=== PATIENT | male | born 1940 | race African-American/Black ===

== ENCOUNTER 2016-11-28 23:59 | Inpatient (IN) | payer BC ==
--- NOTE | ~2016-11-28 | DS ---
Discharge Summary [facility] [address] [place]. [address] NAME: ANNY ROSAS JR : 44 STATUS : DIS IN PAT#: [id number] AGE: 76 ADM/REG DATE : 11/29/16 MR#: [id number] REPORT SERV DATE: 01/01/17 DICTATED BY: JOLENE KANG DATE: 12/31/16 REPORT STATUS : Draft TRANSCRIBED BY: MARY DATE: 12/31/16 Data Collection from hospitalization DISCHARGE DIAGNOSES: 1. End-stage renal disease. 2. ASCVD status post coronary artery bypass grafting. 3. Anemia. 4. Wor-ftsugrb-cwgegpqop diabetes mellitus. 5. Cellulitis of the left lower extremity. 6. Acute ira-GV-dfjleffyj myocardial infarction. 7. Hypertension. 8. History of prostate cancer. 9. History of remote myocardial infarction. 10.History of nephrolithiasis. 11.History of acute systolic heart failure. 12.Hyperlipidemia. CONSULTATIONS: Dr. Deshaun Goncalves, Dr. Joe Patterson, Dr. Prakash Castro, Dr. Alli Foster. PROCEDURES PERFORMED: 1. Cardiac catheterization, 12/04/2016. 2. Limited right iliofemoral angiogram, left heart catheterization, left ventriculogram, left and right coronary angiograms, saphenous vein angiogram, left internal mammary angiogram, 11/30/2016. 3. Urgent redo coronary artery bypass grafting x3 with reverse saphenous vein graft placed to the ramus intermedius, reverse saphenous vein graft placed to the second obtuse marginal, reverse saphenous vein graft placed to the posterior descending artery, preservation of the old FROY graft, placement of dual-lumen right subclavian vein temporary dialysis catheter, endoscopic vein harvest of the saphenous vein from the right and left lower leg. 4. Transesophageal echocardiography, 12/08/2016. 5. Re-exploration of chest with evacuation of clot, 12/09/2016. 6. Carotid blood flow study, 12/07/2016. 7. Vein mapping of the bilateral lower extremities, 12/07/2016. 8. CT scan of the chest with contrast, 12/07/2016. 9. CT scan of the brain without contrast, 12/13/2016. 10.Venous Doppler ultrasound of the left lower extremity, 12/14/2016. 11.MRI of the brain without contrast, 12/15/2016. DISCHARGE MEDICATIONS: Vitamin C 1000 mg twice a day, Halfprin 81 mg daily, Maxipime 2 g IV at 4 p.m., Plavix 75 mg daily, Zetia 10 mg at bedtime, NovoLog injection insulin as instructed, Bactroban 1 g topically twice a day, Nitrol ointment one-inch topically every eight hours, ProctoFoam apply as directed per rectum three times a day, Orazinc 220 mg daily, Apresoline 25 mg every eight hours, Levemir 10 units subcutaneously twice a day, vitamin D3 1000 units twice a day, ProAir HFA two puffs via inhaler as needed. CONDITION AT DISCHARGE: Stable. Discharge Summary [address] [place]. [address] NAME: ANNY ROSAS JR : 44 STATUS : DIS IN [facility]#: [id number] AGE: 76 ADM/REG DATE : 11/29/16 MR#: [id number] REPORT SERV DATE: 01/01/17 DICTATED BY: JOLENE KANG DATE: 12/31/16 REPORT STATUS : Draft TRANSCRIBED BY: MARY DATE: 12/31/16 DISPOSITION: The patient was discharged to [facility] on a cardiac/renal diet with activities as instructed. HOSPITAL COURSE: This is a 75-year-old man, who dialyzes on Mondays, Wednesdays, and Fridays via left upper extremity AV fistula. He recently had his right IJ PermCath removed. He presented to the emergency room with left substernal chest pain. His initial troponin was 1.45 and subsequent troponin dominga to 6.87. He was placed on heparin infusion and topical nitrates with resolution of his chest pain. He was admitted to the hospital at this time for further evaluation and treatment. Upon admission, heparin was started. Dialysis would be performed. He was seen in consultation by Dr. Alli Foster. The patient had a myocardial perfusion imaging study in September that demonstrated no ischemia. The patient was felt to have had an acute non-ST- elevation myocardial infarction. The patient was currently asymptomatic and hemodynamically stable. It was felt that he would need to undergo cardiac catheterization with possible percutaneous coronary intervention. On the , the patient complained of no chest pain. He did have some nausea and vomiting and hypotension during hemodialysis the day previously. He was taken to the cardiac lab systems analyst, where he underwent the above-mentioned procedure. He tolerated this well and there were no complications. On 12/01/2016, he had no dyspnea, chest pain, or palpitations. He had 1+ pitting edema bilaterally. Telemetry revealed sinus rhythm with 6 beats MMVT. Aspirin dose was decreased. He was going to undergo percutaneous coronary intervention in a couple of days. 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 The patient does have acute systolic congestive heart failure. Valsartan was given. Hemodialysis therapy was performed. The next day, he was in a sinus rhythm. He remained stable over the next couple of days. He had trace bilateral pedal edema. Supportive care continued. On 12/04/2016, he was in no acute distress. His hemodialysis treatment continued. He was taken back to the cardiac lab systems analyst by Dr. Alli Foster, where he underwent the above-mentioned procedure. He tolerated this well and there were no complications. On 12/05/2016, he had 1+ edema. He was going to be transferred to the floor. Blood pressure was under better control on JOSEPHINE inhibitor. The next day, he was seen by Deshaun Goncalves, regarding three-vessel coronary artery disease with recent twx-IB-jyvmgmgeu myocardial infarction. On 12/04/2016, an attempt had been made for percutaneous coronary intervention to the first obtuse marginal of the circumflex, which was unsuccessful. He had been asked to see the patient regarding consideration for redo coronary artery bypass grafting. Coronary arteriogram was reviewed. Echocardiogram showed no valvulopathy and was felt that he may have to undergo vein mapping of the bilateral lower extremities in advance of surgery. Plans were being made to proceed with surgical intervention. On the , a carotid blood flow study was performed as well as vein mapping of the bilateral lower extremities. A CT scan of the chest with contrast was also performed. He remained in a sinus rhythm. On the , he was taken to the operating room by Dr. Yohan Johnson, where he underwent the above-mentioned procedure. He tolerated this well and there were no complications. On postop day one, his incisions were clean, dry, and intact. Levophed was being weaned. He did complain of some chest discomfort. Later in the day, he developed hypotension and decreased heart rate and nausea. It was felt that he would need to undergo reexploration in the operating room. He was taken back to the operating room, where he Discharge Summary [address] [place]. [address] NAME: ANNY ROSAS JR : 44 STATUS : DIS IN PAT#: [id number] AGE: 76 ADM/REG DATE : 11/29/16 MR#: [id number] REPORT SERV DATE: 01/01/17 DICTATED BY: JOLENE KANG DATE: 12/31/16 REPORT STATUS : Draft TRANSCRIBED BY: MARY DATE: 12/31/16 underwent the above-mentioned procedure by Dr. Johnson. He tolerated this well and there were no complications. He did have some chest soreness. He had been extubated. CRRT was being provided. On the , his wounds were clean, dry, and intact. His blood pressure was much improved. He had trace edema. Metoprolol was held. He did complain of some abdominal pain as well as some bilateral lower extremity pain. Amiodarone was held. Metoprolol was discontinued. He remained on CRRT. He required high-dose Levophed/vasopressin that evening. We would increase ultrafiltration as tolerated. On 12/13/2016, he complained of feeling weak. He said he felt weak on the left side. His incisions looked okay. He was off pressors. The patient developed some lethargy and left- sided neglect. He had some left lower extremity weakness according to the nurse. A central line was going to be placed. A CT scan of the brain without contrast was performed. On 12/14/2016, he was off Levophed. He complained of left lower extremity pain. Ultrafiltration was increased. The left-sided neglect and weakness had improved. Temporary pacemaker was decreased. Clopidogrel was being given. The patient was seen by Dr. Joe Patterson regarding the left-sided weakness. He had had a venous Doppler ultrasound of the left lower extremity that was negative for DVT. CT scan of the brain showed right basal ganglia stroke, which appeared to be chronic. Echocardiogram demonstrated no apical thrombus. His carotid Doppler study had shown no significant carotid stenosis. He had a decreased nasolabial fold on left. MRI of the brain was requested when the pacing wire was removed. Physical and occupational therapy as well as speech therapy would be initiated. Aspirin was continued. Lipitor was increased. Plavix would be given if it was okay with the surgical team. He was evaluated by Physical Therapy. The next day, he was up sitting in a chair. He said he felt a little better. MRI of the brain without contrast was performed. Pacing wires were removed. He was lethargic. He had no new complaints. He remained on CRRT. CRRT was going to be discontinued. Speech-Language pathology performed a bedside swallow study. There were no overt signs or symptoms of aspiration. Aspiration precautions would be in place. Physical therapy had evaluated the patient. MRI of the brain without contrast was performed. Acute areas of ischemia were present in the right calcarine cortex and scattered in the bilateral XAVI territories without mass effect or hemorrhage. There was sphenoid sinus disease. 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 He was seen by Dr. Prakash Castro regarding cellulitis. Over the past day or two, he had developed a cellulitis like picture of the left lower leg with marked erythema and tenderness. He had a temperature that morning of 99.5. His white blood cell count was mildly elevated, but was now down to 9.9. Liver function tests were normal. The patient had undergone endoscopic vein harvesting in this leg. He had a low-grade fever, also CRRT. Procalcitonin level was elevated. Vancomycin was going to began. He was evaluated by Occupational and Physical Therapy. On the , his lungs were fairly clear on chest x-ray. His cardiovascular status was stable. He still complained of weakness in the left leg. He had no chest pain. DAPT continued. Aspirin, Plavix, and statin agent were continued. White count was 10.6. Hemodialysis therapy was performed. The patient was placed on level 2 sliding scale insulin. Urine output increased. He was afebrile. Vancomycin was continued. The left leg weakness began to improve. Bradycardia resolved. Statin agent was discontinued. On the , he complained of left lower extremity weakness and ankle pain. On the , his white count was 12. Cefepime was added. Vancomycin was continued. The JOHN hose on the left leg were going to be removed. It was felt that the patient would benefit from rehabilitation at discharge. He underwent diabetes education. He said the Discharge Summary [address] [place] [address] NAME: ANNY ROSAS JR : 44 STATUS : DIS IN PAT#: [id number] AGE: 76 ADM/REG DATE : 11/29/16 MR#: [id number] REPORT SERV DATE: 01/01/17 DICTATED BY: JOLENE KANG DATE: 12/31/16 REPORT STATUS : Draft TRANSCRIBED BY: MARY DATE: 12/31/16 left leg continued to hurt. The warmth in the left lower leg decreased. Diabetes control improved. His incisions looked okay. He did have a good bowel movement. Lactulose was stopped as well as Reglan. On the , he was feeling better. Left lower extremity weakness improved, but still remained tender. He was afebrile. Blood pressure was acceptable. He was going to receive one more dose of vancomycin and then this would be discontinued. He would receive a dose of cefepime following hemodialysis on the . Discharge planning was performed. On 12/22/2016, he had no new issues. He had no complaints. He was alert and cooperative. Dialysis therapy was performed. Discharge instructions were given. Due to his improved and stable condition, he was discharged to [facility] on a cardiac/renal diet with activities as instructed. Information collected by: Kylah Rodriguez I submit the above information as my discharge summary. SABINO/MARY Jolene Kang M.D. / [id number] CC: Taryn Luis M.D.
--- NOTE | ~2016-11-28 | CN ---
Consultation Report [facility] [address] [place]. [address] NAME: ANNY ROSAS JR : 44 STATUS : ADM IN PAT#: [id number] AGE: 76 ADM/REG DATE : 11/29/16 MR#: [id number] REPORT SERV DATE: 12/18/16 DICTATED BY: AMADO CASTRO DATE: 12/15/16 REPORT STATUS : Draft TRANSCRIBED BY: MODL DATE: 12/15/16 INFECTIOUS DISEASE CONSULTATION DATE OF CONSULTATION: 12/15/2016 REASON FOR CONSULTATION: Cellulitis. HISTORY OF PRESENT ILLNESS: This is a 75-year-old man with a past medical history notable for end-stage renal disease, on chronic dialysis, along with history of coronary artery disease and previous bypass surgery. He was admitted to the hospital on 11/29 with chest pain and ruled in for myocardial infarction and underwent cardiac cath, which showed that four of his six bypass grafts from his 2011 surgery were occluded. The patient was taken to the operating room by Dr. Johnson on 12/08 and underwent redo coronary artery bypass grafting x3 utilizing saphenous vein grafts harvested from both legs. There was preservation of the old FROY graft. In addition, a right subclavian dialysis catheter was placed. Postoperatively, the patient was extubated fairly early, but did require pressor support for a while and was also placed on CRRT. The CRRT was actually stopped today. He has been off the pressors for a while. He also developed some left-sided hemiparesis, for which he has been evaluated by Neurology and now that his pacer wires have been removed, he is going to undergo MRI scanning of the brain. It was noticed over the last day or two that he has developed a cellulitis-like picture of his left lower leg with warmth, erythema, and tenderness. He has been afebrile, but on CRRT, although his first temperature off the [facility] COORDINATOR this morning is 99.5. His white blood cell count has been mildly elevated, but is down to 9.9 this morning. PAST MEDICAL HISTORY: In addition to the above is notable for hyperlipidemia; hypertension; prostate cancer, for which he was treated with radiation therapy; nephrolithiasis; partial thyroidectomy; diabetes; and a history of DVT. ALLERGIES: NONE. PRESENT MEDICATIONS: Include vitamin C, aspirin, Plavix, Zetia, Pepcid, insulin sliding scale, Bactroban intranasally, and Orazinc. SOCIAL HISTORY: He used to work in a foundry. Nonsmoker. . FAMILY HISTORY: Notable for hypertension and diabetes. REVIEW OF SYSTEMS: Otherwise, negative. No nausea, vomiting, diarrhea, chest pain, or shortness of breath. PHYSICAL EXAMINATION: GENERAL: This is a pleasant man, who is slightly sleepy, but he answers questions appropriately and is in no acute distress. HEAD AND NECK: Unremarkable. Consultation Report [address] [place]. [address] NAME: ANNY ROSAS JR : 44 STATUS : ADM IN [facility]#: [id number] AGE: 76 ADM/REG DATE : 11/29/16 MR#: [id number] REPORT SERV DATE: 12/18/16 DICTATED BY: AMADO CASTRO DATE: 12/15/16 REPORT STATUS : Draft TRANSCRIBED BY: MARY DATE: 12/15/16 LUNGS: Clear to auscultation anteriorly. CARDIAC: Regular rate and rhythm without murmur, gallop, or rub. Sternal wound appears to be healing nicely. ABDOMEN: Nondistended, soft, and nontender. Decreased bowel sounds. EXTREMITIES: The left endoscopic saphenous vein harvest site wound shows no signs of infection, but extending below this down the medial and anterior calf is an area of diffuse erythema, warmth, and tenderness. No areas of fluctuance. LINES: The patient has a left subclavian central line placed on 12/13 and a right subclavian dialysis catheter placed at the time of surgery. LABORATORY STUDIES: White blood cell count as mentioned, hemoglobin 7.5, platelets 110. Albumin 3.9, AST 160, other liver function tests are normal. On 12/10, procalcitonin was 1.18 and on 12/13, procalcitonin was 5.42. Left lower extremity ultrasound shows no signs of a DVT. A CT scan of the brain without contrast showed no acute findings. IMPRESSION: Cellulitis of left lower leg, seven days out from redo CABG, for which he underwent endoscopic vein harvesting in the leg. He does have a low-grade fever off the CRRT, and his procalcitonin is elevated. PLAN: We will begin vancomycin and follow with you. JOANA/MARY ado Castro M.D. / [id number] CC: Taryn Luis M.D. Leonard Hays III, M.D., [facility], [facility]
--- NOTE | ~2016-11-28 | OP ---
Record Of Operation [facility] [address] [place]. [address] NAME: ANNY ROSAS JR : 44 STATUS : ADM IN PAT#: [id number] AGE: 75 ADM/REG DATE : 11/29/16 MR#: [id number] REPORT SERV DATE: 12/15/16 DICTATED BY: TRAVON JOHNSON DATE: 12/08/16 REPORT STATUS : Draft TRANSCRIBED BY: MODL DATE: 12/08/16 DATE OF PROCEDURE: 12/08/2016 PREOPERATIVE DIAGNOSES: 1. Coronary artery disease, status post previous coronary artery bypass grafting. 2. His fhk-SP-ninqqwzyn myocardial infarction. 3. End-stage renal disease, on dialysis. 4. Insulin-dependent diabetes mellitus type 2. 5. Prostate carcinoma, status post radiation therapy. 6. History of deep venous thrombosis. 7. Acute systolic heart failure (ejection fraction of 40%). POSTOPERATIVE DIAGNOSES: 1. Coronary artery disease, status post previous coronary artery bypass grafting. 2. His dfe-SY-bwmgoqexq myocardial infarction. 3. End-stage renal disease, on dialysis. 4. Insulin-dependent diabetes mellitus type 2. 5. Prostate carcinoma, status post radiation therapy. 6. History of deep venous thrombosis. 7. Acute systolic heart failure (ejection fraction of 40%). PROCEDURE PERFORMED: 1. Urgent redo coronary bypass grafting x3, reverse saphenous vein graft placed to the ramus intermedius, reverse saphenous vein graft placed to the second obtuse marginal, reverse saphenous vein graft placed to the posterior descending artery. 2. Preservation of the old FROY graft. 3. Placement of dual lumen right subclavian vein temporary dialysis catheter. 4. Endoscopic vein harvest, saphenous vein from right and left lower leg. 5. Transesophageal echocardiography. SURGEON: Travon Johnson M.D. ASSISTANTS: Elvia Simon and Hugo Sun. ANESTHESIA: General with Dr. Quintanilla. TAPE CUTTER: Alli Foster M.D., [facility], [facility] INDICATIONS: This is a 75-year-old gentleman, who has been on dialysis for two years now. He presented to the emergency room recently with unstable anginal-type symptoms. Troponin at that time was elevated and he was admitted and diagnosed with dhz-UM-kkpnzmiev myocardial infarction. He was medically stabilized and underwent hemodialysis. He then underwent a cardiac catheterization, which demonstrated of the six grafts performed in 2010, that two were patent. The BROWN graft to the LAD and a vein graft going to the posterior descending artery. The other vein grafts placed at the time of his original operation were completely occluded. It looked like he had a new occluded OM2 graft that was culprit lesion. We were Record Of Operation [facility] [address] [place]. [address] NAME: ANNY ROSAS JR : 42 STATUS : ADM IN PAT#: [id number] AGE: 75 ADM/REG DATE : 11/29/16 MR#: [id number] REPORT SERV DATE: 12/15/16 DICTATED BY: TRAVON JOHNSON DATE: 12/08/16 REPORT STATUS : Draft TRANSCRIBED BY: MARY DATE: 12/08/16 asked to see the patient to evaluate for possible urgent redo coronary artery bypass grafting. We discussed this operation with the patient and his and after discussion of the operation, its indications, and risks, they wished to proceed. The patient's STS predicted mortality was 14.6%, morbidity of 52%, and this was discussed with the family. FINDINGS AT OPERATION: 1. Cross-clamp time of 69 minutes. Total pump time 133 minutes. 2. The ramus intermedius vessel was 1.75 mm mildly diseased. A 3 to 4 mm RSVG was anastomosed to it with good runoff. 3. The second obtuse marginal was 1.5 mm moderately diseased. A 3 to 4 mm RSVG was anastomosed to it with good runoff. 4. The posterior descending artery 1.5 mm moderately diseased. A 3 to 4 mm RSVG was anastomosed to it with good runoff. 5. The old FROY graft to the LAD was preserved and had Doppler signal at the end of the case. 6. The vein quality was good from the lower legs. It was a little bit smaller than usual and matched the targets very nicely. All grafts did have good Doppler signal at the end of the case. 7. WIL at the end of the operation demonstrated improved ventricular function. No significant valvular pathology. PATHOLOGIC SPECIMENS: None. DESCRIPTION OF PROCEDURE: The patient was brought to the operating suite. General anesthesia was induced; airway was secured with an endotracheal tube. Lines were secured by Anesthesia and a Hurley catheter was placed. The patient's chest, abdomen, groin, and legs were prepped with Hibiclens and ChloraPrep and draped with Ioban and sterile sheets. WIL probe was placed by Dr. Quintanilla and examination was carried out in my attendance. The saphenous vein was harvested from both lower legs below the knees. We had originally planned on harvesting the left greater saphenous vein from the entire left leg, however, this was not possible because of previous harvesting at the original operation in 2010. It was then discovered until the day of surgery. An incision for an endoscopic vein harvest was made just below the right knee and measured 1 to 2 cm. Secured through the subcutaneous tissue. The saphenous vein was dissected using endoscopic techniques. Once, the vein was completely dissected, side branches were ligated and divided with cautery. Once adequate length of vein had been dissected, a counter incision was made just above the ankle, and the vein was ligated, divided, and brought through the knee incision. In a similar fashion, the left saphenous vein from the left leg below the level of the knee was dissected through a 2 cm incision at the medial aspect of the left knee, and again endoscopic techniques were utilized on the left side also. This vein was brought up to the left knee incision. The vein quality from both legs was good. The leg wounds were made hemostatic, and closed in layers with absorbable suture, and skin closed subcuticular fashion. Next, the old sternal incision was anesthetized and opened with a knife, and was carried Record Of [address] [address] NAME: ANNY ROSAS : 42 STATUS : ADM IN [facility]#: [id number] AGE: 75 ADM/REG DATE : 11/29/16 MR#: [id number] REPORT SERV DATE: 12/15/16 DICTATED BY: TRAVON JOHNSON DATE: 12/08/16 REPORT STATUS : Draft TRANSCRIBED BY: MODL DATE: 12/08/16 through the subcutaneous tissue. The old sternal wires were divided and removed. We then opened the sternum carefully using the oscillating saw. Once, this was accomplished, the adhesions from the posterior table of sternum were taken down with cautery. We were able to place a retractor and we continued our dissection focusing on the right side of the heart and ascending aorta. Once, these structures were adequately cleared, heparin was administered by Anesthesia. The pericardium was tacked to the sides of the chest wall. The ascending aorta was more closely dissected, and the old vein grafts were identified, and these were preserved. With enough of the ascending aorta exposed, pursestring suture was placed in the ascending aorta for cannulation. We then placed a pursestring suture in the right atrial appendage, and the right lateral free wall of the atrium. Cannulation was carried out in routine manner. A retrograde cardioplegia cannula was later placed in the coronary sinus and secured. When all was in readiness, the patient was placed on cardiopulmonary bypass. We continued our dissection of the adhesions freeing the heart up circumferentially. The old vein graft distal sites were noted. The FROY graft was dissected last. It was freed up from adhesions to the lung and chest wall. There was good Doppler signal through the FROY graft. When we had enough slack in the BROWN graft, the heart support was placed. The distal targets were then marked out on the heart as described in the findings. Then, the aorta was cross-clamped. Initial dose of cardioplegia solution was given in a combination of antegrade and retrograde fashion, then in a retrograde manner, following proximal anastomoses. Following the first dose cardioplegia, the heart was positioned for the PDA graft. Arteriotomy was made, the vein graft was trimmed and anastomosed to it with 7-0 Prolene. The vein graft was measured to the right side of the ascending aorta where it was divided. We then positioned off to the second obtuse marginal graft. Another arteriotomy was made. The vein graft was trimmed and anastomosed to it with 7-0 Prolene. This vein graft was measured back to the left side of the ascending aorta where it was divided. Next, the proximal ends of these two vein grafts were anastomosed to 4.5 mm punch aortotomy with a 6-0 Prolene. Another dose of cardioplegia was given and we positioned the heart for the ramus intermedius graft. Warming was begun. Arteriotomy was made and the vein graft was trimmed and anastomosed to it with 7-0 Prolene. This vein graft was measured back to the left-side of the ascending aorta where it was divided and anastomosed to 4.5 mm punch aortotomy with 6 0 Prolene. The patient was placed in Trendelenburg and final dose of warm blood cardioplegia was given in a retrograde fashion. Ventricular and atrial pacing wires were placed. Following the last dose cardioplegia and deairing of the aorta, the aortic cross clamp was removed. A bulldog clamp was placed earlier on the FROY pedicle was removed also. Doppler demonstrated good flow through all the grafts. Proximal and distal anastomoses were made hemostatic. Record Of Operation [facility] [address] [place]. [address] NAME: ANNY ROSAS JR : 44 STATUS : ADM IN PAT#: [id number] AGE: 75 ADM/REG DATE : 11/29/16 MR#: [id number] REPORT SERV DATE: 12/15/16 DICTATED BY: TRAVON JOHNSON DATE: 12/08/16 REPORT STATUS : Draft TRANSCRIBED BY: MARY DATE: 12/08/16 The patient resumed a sinus rhythm spontaneously, and when the heart demonstrated good contractility, it was allowed to fill and eject. Ventilation was begun. When deairing was completed, the patient was taken out of Trendelenburg, and the ascending aortic vent was removed and these pursestring sutures were tied and reinforced. The patient was weaned from cardiopulmonary bypass with inotropic support. The venous cannulas were removed and these pursestring sutures were tied. WIL examination demonstrated good ventricular function. There was no significant valvular pathology. Protamine was administered by Anesthesia and following a period of hemodynamic stability, the aortic cannula was removed and these pursestring sutures were tied and reinforced. The patient continued to do well and chest was irrigated copiously with saline. Meticulous hemostasis was obtained. Hemasorb was placed along the cut edge of the sternum. Once hemostasis was assured, the pericardium was draped over the anterior surface of the heart. Doppler demonstrated good flow through the grafts following protamine administration. Then, chest tubes were placed and sternum was reapproximated with eight sternal wires. The clavipectoral fascia and linea alba closed with #1 Stratafix. Skin was closed in a subcuticular fashion. After hemostasis was achieved and the sternum and skin incisions closed, a right subclavian vein dual-lumen temporary dialysis catheter was placed for hemodialysis postoperatively. Briefly, needle was placed in the right subclavian vein and a guidewire placed through this needle. Then, using modified Seldinger technique, a 14.5-Hungarian dual-lumen temporary venous hemodialysis catheter was inserted into the right subclavian vein. Blood return was noted from both limbs. It was flushed with heparinized saline and secured to the skin, and sterile dressing applied. The patient was mildly coagulopathic at the end of the case and warning tag indicated, the patient needed platelets and fresh frozen plasma and this was administered. DISPOSITION: The patient was kept in the operating room for a shortly extended period of time to avoid chest tube output for mediastinal bleeding. The patient tolerated the procedure well without any complications. Sponge and needle counts were correct. AIDA/MARY Travon Johnson M.D. / [id number] / [id number] Record Of [address] [address] NAME: ANNY ROSAS : 42 STATUS : ADM IN PAT#: [id number] AGE: 75 ADM/REG DATE : 11/29/16 MR#: [id number] REPORT SERV DATE: 12/15/16 DICTATED BY: TRAVON JOHNSON DATE: 12/08/16 REPORT STATUS : Draft TRANSCRIBED BY: MARY DATE: 12/08/16 CC: Taryn Luis M.D. Leonard Hays III, M.D., [facility], [facility]
--- NOTE | ~2016-11-28 | HP ---
History And Physical [facility] [id number] [place]. [address] NAME: ANNY LAW JR : 44 STATUS : ADM IN [facility]#: [id number] AGE: 75 ADM/REG DATE : 11/29/16 MR#: [id number] REPORT SERV DATE: 11/29/16 DICTATED BY: FRANSICO BARROS DATE: 11/29/16 REPORT STATUS : Draft TRANSCRIBED BY: MODL DATE: 11/29/16 DATE OF ADMISSION: 11/29/2016 INDICATION FOR HOSPITALIZATION: Chest pain. HISTORY OF PRESENT ILLNESS: Mr. Law is a 75-year-old male who currently is dialyzing Sunday, Sunday, Sunday at [facility] by left upper extremity AV fistula. He recently had his right IJ PermCath removed. He presented to the emergency room with left substernal chest pain. His initial troponin was 1.45 and subsequent troponin dominga to 6.87. He was placed on heparin infusion and topical nitrates with resolution of his chest pain. Cardiology has been consulted. PAST MEDICAL HISTORY: End-stage renal disease, dialyzing Sunday, Sunday, Sunday at [facility] by left upper extremity AV fistula; coronary artery disease, status post CABG x6 vessels in 2010; anemia; remote ID; hyperlipidemia; hypertension; prostate CA, status post radiation therapy; nephrolithiasis requiring lithotripsy; partial thyroidectomy; type 2 diabetes mellitus; and history of DVT. SOCIAL HISTORY: The patient is retired from a foundry work. No tobacco use. Remote alcohol use. No illicit drug use. He is with good family support. FAMILY HISTORY: Positive for hypertension, diabetes, bone marrow cancer. No end-stage renal disease. HOME MEDICATIONS: Albuterol, Coreg, vitamin D3, Plavix, Cardura, Zetia, Lasix, Apresoline, NovoLog insulin, Levemir insulin, Isordil. ALLERGIES: NONE KNOWN. REVIEW OF SYSTEMS: HEENT: No change in visual acuity. No epistaxis. No otic infection. No pharyngitis. PULMONARY: No shortness of breath, cough, hemoptysis. CARDIAC: No substernal chest pain, now relieved. No syncope. No lower extremity edema. GI: No nausea, vomiting, or melena. : No gross hematuria or dysuria. MUSCULOSKELETAL: Some pain in knees and back. INTEGUMENT: No rash. No itching. NEUROLOGIC: No lateralizing weakness or seizure activity. Remainder of 12-point review of systems is negative. PHYSICAL EXAMINATION: VITAL SIGNS: Blood pressure 134/61, temp 96.6, respiratory rate 16, pulse 60. GENERAL: Pleasant, male, alert, cooperative. HEENT: Eyes, no scleral icterus. Pupils equal and reactive to light. Extraocular movement intact. Nares patent. No lesions. Throat, no injection. Mucous membranes moist. History And Physical [address] [place]. [address] NAME: ANNY LAW JR : 44 STATUS : ADM IN [facility]#: [id number] AGE: 75 ADM/REG DATE : 11/29/16 MR#: [id number] REPORT SERV DATE: 11/29/16 DICTATED BY: FRANSICO BARROS DATE: 11/29/16 REPORT STATUS : Draft TRANSCRIBED BY: MODL DATE: 11/29/16 NECK: No thyromegaly, masses, bruits. CHEST/LUNGS: Few late crackles posteriorly. No wheezes. No dullness. CARDIAC: Regular rate and rhythm. 1/6 systolic ejection murmur. No gallop. No rub. ABDOMEN: Supple. Normoactive bowel sounds. Nontender. No hepatosplenomegaly. /RECTAL: Not performed. EXTREMITIES: No lower extremity edema. No calf tenderness. Left upper extremity AV fistula with good bruit and thrill. DERMIS: No rash. No skin lesions. MUSCULOSKELETAL: No deformity. No joint tenderness. NEUROLOGIC: Cranial nerves intact. No lateralizing weakness. IMPRESSION: 1. Chest pain with increasing troponins consistent with non-ST elevation myocardial infarction. 2. End-stage renal disease, dialyzing Sunday, Sunday, Sunday at [facility] by left upper extremity AV fistula. 3. Anemia. 4. Coronary artery disease, status post six-vessel CABG in 2010. 5. Remote myocardial infarction. 6. Hyperlipidemia. 7. Hypertension. 8. Type 2 diabetes mellitus. 9. Prostate CA, status post radiation. 10.Nephrolithiasis with history of lithotripsy. 11.Subtotal thyroid thyroidectomy. 12.History of deep venous thrombosis. PLAN: 1. Heparin. 2. Labs. 3. Dialysis. 4. Cardiology consult. CG/MODL Fransico Barros M.D. / [id number] CC: Taryn Luis M.D.
--- NOTE | ~2016-11-28 | OP ---
Record Of Operation [facility] [address] [place]. [address] NAME: ANDREWS LAW JR : 42 STATUS : DIS IN PAT#: [id number] AGE: 76 ADM/REG DATE : 11/29/16 MR#: [id number] REPORT SERV DATE: 12/23/16 DICTATED BY: UZIEL FOSTER III DATE: 12/22/16 REPORT STATUS : Draft TRANSCRIBED BY: MODL DATE: 12/22/16 DATE OF PROCEDURE: 11/30/2016 PROCEDURAL VESSEL CREW MEMBER: Uziel Foster M.D., [facility], [facility]. INDICATION: Mr. Andrews Law is a 75-year-old male with three other risk factors for coronary atherosclerotic disease (i.e., hyperlipoproteinemia, hypertension, diabetes mellitus), known left main and three-vessel coronary artery disease, status post six-vessel coronary artery bypass graft surgery (01/09/2011), [place] Heart Association Class IV congestive heart failure, and stage V chronic kidney disease; who presented with an acute non-ST segment elevation myocardial infarction. The patient was referred for cardiac catheterization to define coronary anatomy, graft patency, and left ventricular function. Options, potential risks and benefits of the procedure were discussed with the patient. The patient accepted these risks and wished to proceed. PROCEDURE DESCRIPTION: 1. Limited right iliofemoral angiogram. 2. Left heart catheterization. 3. Left ventriculogram. 4. Left and right coronary angiograms. 5. Saphenous vein angiograms. 6. Left internal mammary angiograms. CONTRAST: Iopamidol 225 mL. MEDICATIONS: 1. Midazolam 1 mg intravenously, in divided doses. 2. Sublimaze 50 mcg intravenously, in divided doses. EQUIPMENT: 1. A 4-Italian Cook micropuncture with stiffened cannula (RFA). 2. A 0.035 inch PTFE coated, 150 cm, 3 mm J Caymas Systemsald guidewire. 3. A 6-Italian, 10 cm Terumo Hixson sheath. 4. A 6-Italian, 100 cm #4 curve left coronary artery Maldonado catheter. 5. A 6-Italian, 100 cm #4 curve right coronary artery Maldonado catheter. 6. A 6-Italian, 110 cm multipurpose A2 catheter. 7. A 6-Italian, 110 cm pigtail-145 catheter. 8. A 6-Italian EncrypTix Perclose ProGlide vascular closure device. COMPLICATIONS: None. RADIATION DOSE: 3151 mGy. ESTIMATED BLOOD LOSS: 20 mL. HEMODYNAMIC DATA: Prior to left ventriculography, the central aortic pressure was 148/65 Record Of Operation [place] [id number] [facility] [place]. [address] NAME: ANDREWS LAW JR : 42 STATUS : DIS IN PAT#: [id number] AGE: 76 ADM/REG DATE : 11/29/16 MR#: [id number] REPORT SERV DATE: 12/23/16 DICTATED BY: UZIEL FOSTER III DATE: 12/22/16 REPORT STATUS : Draft TRANSCRIBED BY: MODL DATE: 12/22/16 mmHg. The left ventricular pressure was 145/28 mmHg. ANGIOGRAPHIC DATA: Single plane 30-degree SANCHEZ right iliofemoral angiography demonstrated irregularities of the distal external iliac, common femoral, proximal superficial femoral, and proximal femoral profunda arteries. The sheath insertion site was located in the common femoral artery. Single plane 30-degree SANCHEZ left ventriculography demonstrated that the left ventricle was moderately enlarged. There was anterolateral hypokinesis with localized proximal akinesis, apical hypokinesis with localized akinesis, diaphragmatic hypokinesis with localized akinesis and posterobasal hypokinesis. Global left ventricular systolic function was mild to moderately reduced. There was no mitral regurgitation. The left main coronary artery was a rureij-ez-wctbp caliber, long, irregular vessel. There was an eccentric 50% stenosis involving the distal portion of the left main coronary artery. The left main coronary artery trifurcated into a rdaea-at-xlvyul caliber left anterior descending, medium caliber ramus intermedius, and a robgg-hh-npjzkb caliber, dominant left circumflex coronary arteries. The left anterior descending coronary artery gave rise to three major septal perforators, medium caliber first diagonal branch and a epfrc-pq-nljuni caliber second diagonal branch, before demonstrating a "flush and fill" phenomenon in its distal portion. The left anterior descending coronary artery was diffusely irregular. The left anterior descending coronary artery was free of angiographically significant obstructive epicardial coronary artery disease. The ramus intermedius coronary artery was a medium caliber, irregular vessel. There was a radiolucent, concentric 70% to 90% stenosis involving the origin of the ramus intermedius from the left main coronary artery. The remainder of the ramus intermedius was free of angiographically significant obstructive epicardial coronary artery disease. The left circumflex coronary artery was a kzdhi-se-uexzvd caliber, dominant vessel. The left circumflex coronary artery gave rise to a medium caliber obtuse marginal branch, medium caliber posterolateral segment branch, and a vtiqx-vq-pvmudr caliber posterior descending coronary artery. There was a radiolucent 50% stenosis involving the distal portion of the left circumflex coronary artery, just proximal to the origin of the posterolateral segment branch. There was a radiolucent, irregular 70% to 90% stenosis involving the distal portion of the left circumflex coronary artery, just distal to the origin of the posterolateral segment branch. There was a radiolucent 50% to 70% stenosis involving the proximal portion of the obtuse marginal branch. The obtuse marginal branch bifurcated in its proximal portion into a small caliber proximal branch and a medium caliber distal branch. The distal branch of the obtuse marginal branch was totally occluded in its proximal portion. The remainder of the distal branch of the obtuse marginal branch was visualized faintly and laid by bridging esel-yj-kxom collaterals. The remainder of the left circumflex coronary artery was free of angiographically significant obstructive epicardial coronary artery disease. The right coronary artery was a small caliber, nondominant vessel. The right coronary Record Of [address] [place]. [address] NAME: ANDREWS LAW : 42 STATUS : DIS IN PAT#: [id number] AGE: 76 ADM/REG DATE : 11/29/16 MR#: [id number] REPORT SERV DATE: 12/23/16 DICTATED BY: UZIEL FOSTER III DATE: 12/22/16 REPORT STATUS : Draft TRANSCRIBED BY: MODL DATE: 12/22/16 artery gave rise to a conus branch and a sinoatrial branch, before terminating prior to the crux. The right coronary artery was diffusely irregular. There was a 50% stenosis involving the proximal portion of the right coronary artery, just proximal to the origin of the sinoatrial branch. The right coronary artery was subtotally occluded in its proximal portion, just distal to the origin of the sinoatrial branch. The saphenous vein graft to the ramus intermedius coronary artery was totally occluded in its proximal portion. The saphenous vein graft to the obtuse marginal branch of the left circumflex coronary artery was totally occluded in its proximal portion. The saphenous vein graft to the posterior descending coronary artery was patent. The saphenous vein graft was a ucvgwc-uc-ewjbs caliber, irregular vessel. There was a long, irregular 50% to 70% stenosis involving the proximal portion. There was a radiolucent, eccentric 50% to 70% stenosis involving the mid portion of the saphenous vein graft. There was good antegrade and limited retrograde flow into the posterior descending coronary artery. The saphenous vein graft to the major diagonal branch of the left anterior descending coronary artery was totally occluded in its proximal portion. The saphenous vein graft to the right ventricular branch of the right coronary artery was totally occluded in its proximal portion. The left internal mammary artery graft to the distal portion of the left anterior descending coronary artery was patent. The left internal mammary artery graft was a large caliber vessel. There were minor luminal irregularities. There was good antegrade and limited retrograde flow into the distal portion of the left anterior descending coronary artery. PATIENT DISPOSITION: Coronary Short Stay Unit. CONCLUSIONS: 1. Anterolateral hypokinesis with localized proximal akinesis, apical hypokinesis with localized akinesis, diaphragmatic hypokinesis with localized akinesis and posterobasal hypokinesis, with a futc-bo-feootbhl reduction in global left ventricular systolic function. 2. Elevated left ventricular end-diastolic pressure. 3. Angiographically significant left main and three-vessel coronary artery disease, involving the proximal portion of the ramus intermedius, left circumflex and proximal portion of the right coronary artery. 4. Left dominant coronary anatomy. 5. Total proximal occlusion of the saphenous vein graft to the ramus intermedius coronary artery. 6. Total proximal occlusion of the saphenous vein graft to the obtuse marginal branch of the left circumflex coronary artery. 7. Patent and compromised saphenous vein graft to the posterior descending coronary Record Of Operation [place] [id number] [facility] [place]. [address] NAME: ANDREWS LAW JR : 42 STATUS : DIS IN PAT#: [id number] AGE: 76 ADM/REG DATE : 11/29/16 MR#: [id number] REPORT SERV DATE: 12/23/16 DICTATED BY: UZIEL FOSTRE III DATE: 12/22/16 REPORT STATUS : Draft TRANSCRIBED BY: MARY DATE: 12/22/16 artery, with good antegrade and limited retrograde flow. 8. Total proximal occlusion of the saphenous vein graft to the major diagonal branch of the left anterior descending coronary artery. 9. Total proximal occlusion of the saphenous vein graft to the major right ventricular branch of the right coronary artery. 10.Patent left internal mammary artery graft to the distal portion of the left anterior descending coronary artery, with good antegrade and limited retrograde flow. RECOMMENDATIONS: Continued medical therapy, intensive risk factor modification and percutaneous coronary intervention of the obtuse marginal branch/distal portion of the left circumflex/proximal portion of the ramus intermedius coronary arteries. /MARY Uziel Foster III, M.D., [facility], [facility] / [id number] CC: Taryn Luis M.D.
--- NOTE | ~2016-11-28 | CN ---
Consultation Report [facility] [address] [place]. [address] NAME: ANNY ROSAS JR : 42 STATUS : ADM IN PAT#: [id number] AGE: 75 ADM/REG DATE : 11/29/16 MR#: [id number] REPORT SERV DATE: 12/14/16 DICTATED BY: DATE: REPORT STATUS : Draft TRANSCRIBED BY: MODL DATE: 12/14/16 NEUROLOGY CONSULTATION DATE OF CONSULTATION: 12/14/2016 REASON FOR CONSULT: Left-sided weakness. HISTORY OF PRESENT ILLNESS: This is a 75-year-old male, presented to [facility] on 11/29/2016 secondary to chest pain. The patient was subsequently noted to have a non-ST elevation MS with the patient noted to have coronary artery disease with the patient status post coronary artery bypass surgery. The patient was initially required to go back to the operating room secondary to breathing issues, but has since being stabilized with the patient noted to have complaints of left lower extremity weakness starting on 12/13/2016 according to nursing staff. The patient initially was able to move the toes in the left lower extremity, but complains of pain in the left lower extremity. On 12/13/2016, the patient was noted to have slow progressive symptom, so with the patient noted to have difficulty moving left upper extremity. Later on 12/13/2016 with the patient noted to have abnormal eye movements and apparent difficulty controlling the leftward gaze with the patient's bilateral eye. The patient's left upper extremity movement subsequently improved, although the patient is still complaining of left lower extremity weakness. On the date of hospital evaluation, the patient has had left lower extremity venous Doppler study without DVT. The patient denies any dysarthria and reports some numbness in the left upper and lower extremity. Denies similar symptoms in the past. The patient, otherwise prior to the hospitalization, was not noted to have any recent illness. At the time of evaluation, the patient's review of systems was negative except for those mentioned in the HPI. PAST MEDICAL HISTORY: The patient was noted to have a past medical history significant for end-stage renal disease, on hemodialysis, history of recent non-ST elevation myocardial infarction, as well as previous history of coronary artery disease, status post six-vessel bypass surgery with the patient recently underwent coronary artery bypass surgery after recent myocardial infarction. The patient was also noted to have a nonsustained ventricular tachycardia, type 2 diabetes, insulin dependent, hyperlipidemia, hypertension, history of systolic heart failure, history of anemia of chronic disease, as well as a history of DVT. The patient also has had a history of thyroidectomy. ALLERGIES: THE PATIENT WAS NOTED TO HAVE NO KNOWN DRUG ALLERGIES. SOCIAL HISTORY: Denies tobacco, alcohol, or recreational drug usage. FAMILY HISTORY: Significant for hypertension, diabetes, heart disease. No history of stroke or seizure was otherwise noted. CURRENT HOSPITAL MEDICATION: Consists of aspirin, as well as Lipitor, Bactroban, NovoLog, zinc sulfate, Pepcid, vitamin C, and Zetia. Consultation Report [facility] [address] [place]. [address] NAME: ANNY ROSAS JR : 42 STATUS : ADM IN [facility]#: [id number] AGE: 75 ADM/REG DATE : 11/29/16 MR#: [id number] REPORT SERV DATE: 12/14/16 DICTATED BY: DATE: REPORT STATUS : Draft TRANSCRIBED BY: MODL DATE: 12/14/16 REVIEW OF SYSTEMS: Again, review of systems is negative except for those mentioned in the HPI. PHYSICAL EXAMINATION: VITAL SIGNS: At the time of evaluation, the patient was noted to have a T-max of 98.4, heart rates of 55 to 67, respirations of 11 to 24, and blood pressure of 112 to 128 over 54 to 74. GENERAL: The patient is well developed, well nourished, in no acute distress. CARDIOVASCULAR: Regular rate and rhythm. No carotid bruits were otherwise auscultated. PULMONARY: Clear to auscultation bilaterally. NEUROLOGICAL: Generally, the patient is alert and oriented to person, place, year, and month. Follows simple and two-step commands at the time of evaluation. Dysarthria was noted. No clear aphasia was noted. Intact registration, difficulty with recall. Cranial nerves 2 through 12, pupils equal, round, and reactive to light. Horizontal eye movement was noted to be intact with intact blink to threat response. Facial asymmetry with decreased nasolabial fold, as well as mild left-sided weakness was noted. The patient reports symmetrical sensation in the bilateral face. Midline tongue. Normal palatal movement. Mild decreased hearing in bilateral ears. The patient was also noted to have weakness in the bilateral upper extremity, left slightly worse than on the right, 4/5 left upper extremity strength and 4+/5 right upper extremity. The patient otherwise was noted to have 4+/5 right lower extremity strength with the patient noted to have 0/5 left lower extremity strength at the time of evaluation. The patient reports symmetrical sensation in bilateral upper and lower extremity at the time of evaluation with the patient noted to have intention tremor in the left upper extremity. Lxelaw-gg-jdld examination, deep tendon reflex was otherwise attenuated throughout. Gait was not evaluated as the patient is on hemodialysis at the time of evaluation. LABORATORY STUDIES: Demonstrated a white blood cell count of 11.8, hemoglobin of 7.7, hematocrit of 23.0, and platelet count of 116. Chemistry panel: Sodium 138, potassium 4.0, chloride 100, bicarb 24, BUN of 19, creatinine 1.34, glucose of 152. Calcium of 7.9. Serum ABG demonstrated pH of 7.43, pCO2 of 35, pO2 of 70, bicarb of 23.1, and O2 saturation of 92.4. CT scan of the brain was reviewed. 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 Echocardiogram demonstrated no apical thrombus. Carotid Doppler study demonstrated no significant carotid stenosis. The patient also was noted to have a recent hemoglobin A1c, as well as fasting lipid panel with the patient's recent fasting lipid panel demonstrated cholesterol of 178, HDL 42, LDL of 93 and triglyceride of 218. Hemoglobin A1c of 8.3. IMPRESSION: Left lower extremity weakness. The patient was noted to have decreased Consultation Report [place] [id number] [facility] [place]. [address] NAME: ANNY ROSAS : 44 STATUS : ADM IN [facility]#: [id number] AGE: 75 ADM/REG DATE : 11/29/16 MR#: [id number] REPORT SERV DATE: 12/14/16 DICTATED BY: DATE: REPORT STATUS : Draft TRANSCRIBED BY: MODL DATE: 12/14/16 nasolabial fold on the left with NIH stroke of 7. Symptom was noted on 12/13/2016 concern for possible subcortical stroke. We will obtain MRI of the brain when pacing wire is removed. Otherwise, we will initiate Physical Therapy, Occupational Therapy, and Speech Therapy consult, so we will continue aspirin, increase Lipitor to 80 mg p.o. at bedtime, and we will add Plavix if it is okay with the surgical team. RECOMMENDATIONS: 1. PT, OT, and Speech Therapy. 2. Plavix 75 mg p.o. daily if okay with the surgical team. 3. Increase the Lipitor to 80 mg p.o. at bedtime. 4. MRI of the brain without contrast once the pacing wire is removed. [facility]/MODL Joe Patterson MD / [id number] CC: Taryn Luis M.D.
--- NOTE | ~2016-11-28 | OP ---
Record Of Operation [facility] [address] [place]. [address] NAME: ANNY LAW JR : 42 STATUS : ADM IN PAT#: [id number] AGE: 75 ADM/REG DATE : 11/29/16 MR#: [id number] REPORT SERV DATE: 12/09/16 DICTATED BY: TRAVON JOHNSON DATE: 12/09/16 REPORT STATUS : Draft TRANSCRIBED BY: MODL DATE: 12/09/16 DATE OF PROCEDURE: 12/09/2016 PREOPERATIVE DIAGNOSIS: Bleeding status post recent redo coronary artery bypass grafting. POSTOPERATIVE DIAGNOSIS: Bleeding status post recent redo coronary artery bypass grafting. PROCEDURE PERFORMED: Re-exploration of chest with evacuation of clot. SURGEON: Travon Johnson M.D. METAL CNC OPERATOR: Celestine Arshad. ANESTHESIA: General. INDICATIONS: Mr. Law is a 75-year-old gentleman, who has end-stage renal disease, diabetes and came in with a bdl-SA-bdpmuzhsr myocardial infarction. Cardiac catheterization demonstrated that several of his previous grafts have been closed. He was taken to the operating room yesterday, underwent a three-vessel redo coronary artery bypass grafting. At conclusion of the procedure, he was a little coagulopathic and received FFP, platelets, and cryo with good response. Once in the unit, he overnight did well, he was extubated and was doing well earlier today. Approximately 1130 hours, the patient had a large episode of bleeding from the chest tube. It was while he was out of bed and the patient felt nauseated. He had a drop in his heart rate and drop in his blood pressure. He is put back in his bed and bleeding stopped with pressure and with a small amount of volume and low-dose pressor agents. Blood pressure came back up nicely. The patient was stable. I felt the patient should go back to the operating room for reexploration to make sure there was no surgical bleeding ongoing. This was discussed with the patient's , who wished to proceed. FINDINGS: No active bleeding encountered in chest. There was a bleeding site on the right atrial appendage cannulation site, this was re-sutured with Prolene. PATHOLOGIC SPECIMEN: None. DESCRIPTION OF PROCEDURE: The patient was brought to the operating suite. General anesthesia was induced. Airway secured with an endotracheal tube. Lines were already in place. Hurley catheter was in place. The patient's chest and abdomen were prepped with Hibiclens and ChloraPrep and draped with Ioban sterile sheets. A sternal incision was reopened and sternal sutures were removed. The sternal wires were then removed. Retractor was placed. There was a large amount of old or new clot around the right heart and anterior surface of the heart. We spent some time evacuating the clot and irrigating the chest. No active bleeding sites were seen on complete evacuation of all clot. While looking for areas of possible bleeding on the right side, we found a small area of bleeding on the right atrial appendage cannulation site. Record Of Operation [facility] [address] [place]. [address] NAME: ANNY LAW JR : 42 STATUS : ADM IN [facility]#: [id number] AGE: 75 ADM/REG DATE : 11/29/16 MR#: [id number] REPORT SERV DATE: 12/09/16 DICTATED BY: TRAVON JOHNSON DATE: 12/09/16 REPORT STATUS : Draft TRANSCRIBED BY: MARY DATE: 12/09/16 Right atrial appendage cannulation site was then re-sutured with 4-0 for Prolene. We continued to evacuate any remaining clot out of the chest. The right pleural cavity had a small amount of clot and this was evacuated. The chest was then irrigated copiously with sterile water and saline. Hemostasis was assured. All grafts had palpable pulses. Once hemostasis was assured, chest tubes were cleared of clot and replaced and then sternum reapproximated with eight sternal wires. The clavipectoral fascia and linea alba closed with #1 Stratafix as was subcutaneous tissue. The skin was closed in a subcuticular fashion. The patient tolerated the procedure well. There were no complications. Sponge and needle counts correct. DISPOSITION: The patient was taken back to the intensive care unit in a stable intubated condition for postoperative monitoring. AIDA/MARY Travon Johnson M.D. / [id number] CC: Oscar Taryn Kang M.D.
--- NOTE | ~2016-11-28 | CN ---
Consultation Report [facility] [address] [place]. [address] NAME: ANNY ROSAS JR : 44 STATUS : ADM IN PAT#: [id number] AGE: 75 ADM/REG DATE : 11/29/16 MR#: [id number] REPORT SERV DATE: 12/06/16 DICTATED BY: DESHAUN SALDIVAR DATE: 12/06/16 REPORT STATUS : Draft TRANSCRIBED BY: MODL DATE: 12/06/16 CONSULTATION NOTE DATE OF CONSULTATION: REASON FOR CONSULTATION: Coronary artery disease, three vessel, with recent non-ST elevation myocardial infarction, status prior coronary artery bypass grafting x6 in December 2010. CHIEF COMPLAINT: "I had chest pain." HISTORY OF PRESENT ILLNESS: This is a 75-year-old black male who is known to us status post coronary artery bypass grafting to six vessels with left internal mammary artery to left anterior descending, saphenous vein graft to the diagonal, reverse saphenous vein graft to the first obtuse marginal, reverse saphenous vein graft to the second obtuse marginal, reverse saphenous vein graft to the posterior descending artery, as well as reverse saphenous vein graft to the right ventricular branch in December [address] Johnson. He has chronic kidney disease, stage V, on dialysis, and continues to make urine. He was in his usual state of health until recently when he presented to the emergency department with substernal chest pain. His initial troponin was elevated at 1.45 and this dominga to 6.87. He was treated with heparin, nitrates, and chest pain resolved and he was hospitalized. Cardiology consultation was obtained and he underwent coronary arteriogram by Dr. Foster on 11/30/2016. This demonstrated occlusion of four to five saphenous vein grafts, patent left internal mammary artery to left anterior descending. On 12/04/2016, attempted percutaneous coronary intervention to the first obtuse marginal of the circumflex was unsuccessful. We were asked to see for further evaluation and management and possible consideration for redo coronary artery bypass grafting. At present, the patient is pain free. PROBLEM LIST/PRIOR HISTORY: 1. Recent non-ST elevation myocardial infarction. 2. Three-vessel coronary artery disease. 3. Nonsustained ventricular tachycardia. 4. End-stage renal disease, on dialysis. 5. Type 2 diabetes mellitus, insulin dependent. 6. Hyperlipidemia. 7. Hypertension. 8. Acute systolic heart failure, NYHA class II. 9. History of prostate cancer, status post radiation therapy. 10.Anemia of chronic disease. 11.History of deep vein thrombosis. 12.Chest pain. 13.History of renal calculi. 14.Previous subtotal thyroidectomy. Consultation Report [facility] [address] [place]. [address] NAME: ANNY ROSAS JR : 44 STATUS : ADM IN PAT#: [id number] AGE: 75 ADM/REG DATE : 11/29/16 MR#: [id number] REPORT SERV DATE: 12/06/16 DICTATED BY: DESHAUN SALDIVAR DATE: 12/06/16 REPORT STATUS : Draft TRANSCRIBED BY: MARY DATE: 12/06/16 15.Prior cataracts. PRIOR SURGICAL HISTORY: Significant for bilateral cataract excision, previous coronary artery bypass grafting x6 in 2010, previous cardiac catheterization, prior colonoscopies, establishment of right AV fistula, left AV fistula, and previous right radiocephalic fistula. Currently, the left AV fistula is in use. ALLERGIES: NONE KNOWN. MEDICATIONS AT HOME: Include albuterol inhaler; carvedilol; vitamin D3; Plavix 75 mg, last dose was on 11/27/2016; doxazosin 8 mg p.o. daily; Zetia 10 mg at h.s.; furosemide 40 mg p.o. b.i.d.; hydralazine 25 mg p.o. b.i.d.; insulin and isosorbide 20 mg p.o. t.i.d. FAMILY HISTORY: Significant for hypertension, diabetes mellitus, and bone marrow cancer. Negative for heart attack, stroke, seizures, kidney disease, liver disease, anemia arthritis, or mental illness. SOCIAL HISTORY: The patient is retired. He denies tobacco use. Denies alcohol or drug use. PHYSICAL EXAMINATION: GENERAL: He is a pleasant, cooperative, elderly black male, in no acute distress. His height is 178 cm and weight 90.463 kg. VITAL SIGNS: Blood pressure 180/76, temperature 97.4, pulse 67, respirations 14, and saturation 96% on room air. HEENT: Normocephalic and atraumatic. Pupils are equal, round, reactive to light and accommodation. Sclerae are clear. Conjunctivae are pink. Oral and buccal mucosa pink and moist and teeth in reasonable condition. NECK: Supple. No restricted range of motion. There is left carotid bruit to auscultation. Normal bilateral carotid upstrokes. CHEST: No external deformity. He has a few crackles in the lung bases, more so on the left than the right. No wheezing. CV: Regular rate and rhythm without murmur or rub. He has palpable symmetric and central peripheral pulses. No clubbing, cyanosis, or edema. ABDOMEN: Soft, obese, nontender, and nondistended. No hepatosplenomegaly or masses. /RECTAL: Declined. MUSCULOSKELETAL: No kyphoscoliosis. No asymmetry. NEUROLOGIC: He is alert and oriented to day, date, place, and situation. Speech is clear and fluent. No focal neurologic deficits. DATA: Coronary arteriogram was reviewed with Dr. Johnson and it shows disease as described. Echocardiogram showed no valvulopathy. CT of the brain from December 2015 showed old lacunar infarct. I do not see a current carotid ultrasound. His CBC shows WBC 6.6, hemoglobin 10 g, hematocrit 30.8%, and platelets 151,000. Renal function profile showed sodium 139, potassium 3.9, chloride 105, CO2 23, BUN 41, creatinine 4.15, glucose elevated at 202, and albumin is low at 2.9. Consultation Report [address] [place]. [address] NAME: ANNY ROSAS JR : 44 STATUS : ADM IN [facility]#: [id number] AGE: 75 ADM/REG DATE : 11/29/16 MR#: [id number] REPORT SERV DATE: 12/06/16 DICTATED BY: DESHAUN SALDIVAR DATE: 12/06/16 REPORT STATUS : Draft TRANSCRIBED BY: MARY DATE: 12/06/16 IMPRESSION: 1. Recent non-ST elevation myocardial infarction. 2. Coronary artery disease, three-vessel, recurrent with four of six bypass grafts occluded. 3. History of prior cerebrovascular accident. 4. End-stage renal disease, on dialysis. 5. Nonsustained ventricular tachycardia. 6. Type 2 diabetes mellitus, insulin dependent. 7. Hyperlipidemia. 8. Hypertension. 9. Systolic heart failure. 10.Anemia. We talked with the patient and his family about possible coronary artery bypass grafting. Using [employer]' database, risks of redo coronary artery bypass grafting with the patient's variables, height, weight, renal function, etc., were calculated and expected risk of mortality was 14.65, which is elevated morbidity or mortality of 52.014%. Dr. Johnson will review with the patient and make further disposition. If plan is to move forward with surgery, then the patient would likely require a carotid ultrasound given his left carotid bruit as well as contrast CT of the chest to look at the proximity of the heart and vessels to the posterior sternal table. He had prior endoscopic vein harvest of vein from both thighs, and may be necessary to have vein mapping of the lower extremities in advance of surgery. We appreciate the opportunity to participate in this gentleman's care. MSL/MODL Deshaun Saldivar N.P. / [id number] CC: Taryn Luis M.D.
[2016-11-28 23:03] LABS: BASOPHILS 0.4 %; BASOPHILS ABSOLUTE 0.02 10/3/uL (0.0-0.16); EOSINOPHILS 5.3 %; EOSINOPHILS ABSOLUTE 0.29 10/3/uL (0.0-0.53); ER CBC TAT 0 Hrs 15 MinsNP; HEMOGLOBIN 10.7 g/dL (13.6-17.8); IMMATURE GRANULOCYTES 0.2 %; IMMATURE GRANULOCYTES ABSOLUTE 0.01 10/3/uL (0.0-0.11); LYMPHOCYTES 35.9 %; LYMPHOCYTES ABSOLUTE 1.95 10/3/uL (0.67-4.30); MANUAL DIFF NO %; MEAN CORPUS HGB CONC 33.4 g/dL (32.0-36.0); MEAN CORPUSCULAR HEMOGLOB 28.6 pg (26.0-34.0); MEAN CORPUSCULAR VOLUME 85.6 fL (80-100); MEAN PLATELET VOLUME 10.1 fL (9.2-13.0); MONOCYTES 7.2 %; MONOCYTES ABSOLUTE 0.39 10/3/uL (0.21-1.20); NEUTROPHILS ABSOLUTE 2.77 10/3/uL (2.02-8.40); PLATELET COUNT 146 10/3/uL (150-400); RBC DISTRIBUTION WIDTH 14.1 % (12.0-16.0); RED CELL COUNT 3.74 10/6/uL (4.7-6.1); WHITE BLOOD CELLS 5.4 10/3/uL (4.5-10.5)
[2016-11-28 23:09] LABS: PROTIME (NOT ORD) 13.2 SEC (12.0-14.5)
[2016-11-28 23:13] LABS: PARTIAL THROMBO TIME 22.7 SEC (22.5-37.2)
[2016-11-28 23:19] LABS: CHLORIDE, SERUM 99 MMOL/L (96-112); CO2 (CARBON DIOXIDE) 27 MMOL/L (24-34); POTASSIUM, SERUM 3.8 MMOL/L (3.5-5.3); SODIUM, SERUM 139 MMOL/L (135-148)
[2016-11-28 23:21] LABS: BUN (BLOOD UREA NITROGEN) 29 MG/DL (6-23); CHEST PAIN PROFILE TAT 0 Hrs 33 Mins; CREATININE 3.66 MG/DL (0.70-1.30); GFR AFRICAN AMERICAN 18 ML/MIN (>=60); GFR NON AFRICAN AMERICAN 15 ML/MIN (>=60); GLUCOSE, SERUM 441 MG/DL (60-99); TROPONIN I 1.45 NG/ML (<0.05)
[~2016-11-28 23:59] MED LIST: ASAB PO; BUM1 PO; CARDU2 PO; CARDURA8 MG PO; COREG25 PO; L20 PO; L40 PO; LEVEMFLXPN SC; LEVEMIR SC; LISINOPRIL40 MG PO; LOTE20 PO; NORCO1 TA1 PO; NORV10 PO; NOVOLOG SC; NOVOPEN SC; PLAVIX PO; ROCALTROL 0.0.25 MCG PO; ROCALTROL0.25 MCG PO; TEKTURNA300 MG PO; VITAMIN D1000 UNI1 PO
[2016-11-29] MEDS ORDERED: PLAVIX PO (02:19)
[2016-11-29] MEDS ORDERED: L40 PO (02:19)
[2016-11-29] MEDS ORDERED: ISORDIL20 PO (02:19)
[2016-11-29] MEDS ORDERED: APRES25 PO (02:25)
[2016-11-29] MEDS ORDERED: NOVOLOG SC (02:25)
[2016-11-29] MEDS ORDERED: COREG25 PO (02:25)
[2016-11-29] MEDS ORDERED: CARDURA8 MG PO (02:25)
[2016-11-29] MEDS ORDERED: LEVEMIR SC (02:26)
[2016-11-29] MEDS ORDERED: VITAMIN D31000 UNIT PO (02:26)
[2016-11-29] MEDS ORDERED: PROAIR HFA INH (02:26)
[2016-11-29] MEDS ORDERED: ZETIA PO (02:26)
[2016-11-29 07:30] LABS: BASOPHILS 0.5 %; BASOPHILS ABSOLUTE 0.03 10/3/uL (0.0-0.16); EOSINOPHILS 5.1 %; EOSINOPHILS ABSOLUTE 0.32 10/3/uL (0.0-0.53); HEMATOCRIT 31.9 % (40.0-51.0); HEMOGLOBIN 10.5 g/dL (13.6-17.8); IMMATURE GRANULOCYTES 0.2 %; IMMATURE GRANULOCYTES ABSOLUTE 0.01 10/3/uL (0.0-0.11); LYMPHOCYTES 34.7 %; LYMPHOCYTES ABSOLUTE 2.18 10/3/uL (0.67-4.30); MANUAL DIFF NO %; MEAN CORPUS HGB CONC 32.9 g/dL (32.0-36.0); MEAN CORPUSCULAR HEMOGLOB 28.4 pg (26.0-34.0); MEAN CORPUSCULAR VOLUME 86.2 fL (80-100); MEAN PLATELET VOLUME 9.9 fL (9.2-13.0); MONOCYTES 9.9 %; MONOCYTES ABSOLUTE 0.62 10/3/uL (0.21-1.20); NEUTROPHILS 49.6 %; NEUTROPHILS ABSOLUTE 3.13 10/3/uL (2.02-8.40); PLATELET COUNT 145 10/3/uL (150-400); RBC DISTRIBUTION WIDTH 14.1 % (12.0-16.0); WHITE BLOOD CELLS 6.3 10/3/uL (4.5-10.5)
[2016-11-29 07:44] LABS: CHOL/HDL RATIO(NOT ORDER) 4.8 (0-5)
[2016-11-29 07:45] LABS: TROPONIN I 6.87 NG/ML (<0.05)
[2016-11-29 14:35] LABS: ALBUMIN 2.8 G/DL (3.5-5.0); BUN (BLOOD UREA NITROGEN) 30 MG/DL (6-23); CALCIUM, SERUM 8.5 MG/DL (8.5-10.4); CHLORIDE, SERUM 104 MMOL/L (96-112); CO2 (CARBON DIOXIDE) 27 MMOL/L (24-34); CREATININE 3.67 MG/DL (0.70-1.30); GFR AFRICAN AMERICAN 18 ML/MIN (>=60); GFR NON AFRICAN AMERICAN 15 ML/MIN (>=60); GLUCOSE, SERUM 285 MG/DL (60-99); PHOSPHORUS, SERUM 3.7 MG/DL (2.5-4.5); POTASSIUM, SERUM 3.9 MMOL/L (3.5-5.3); SODIUM, SERUM 141 MMOL/L (135-148)
[2016-11-29 23:55] LABS: ASCORBIC ACID (UR NOT ORDER) NEG (NEG); BILIRUBIN, URINE NEGATIVE (NEG); KETONE, URINE NEGATIVE (NEG); LEUKOCYTE ESTERASE(NOT OR NEG (NEG); WBC (NOT ORDERED) (RFLEX) < 1 (0-5)
[2016-11-30 05:55] LABS: BASOPHILS 0.3 %; BASOPHILS ABSOLUTE 0.02 10/3/uL (0.0-0.16); EOSINOPHILS 5.1 %; EOSINOPHILS ABSOLUTE 0.34 10/3/uL (0.0-0.53); HEMATOCRIT 32.3 % (40.0-51.0); HEMOGLOBIN 10.5 g/dL (13.6-17.8); IMMATURE GRANULOCYTES 0.3 %; IMMATURE GRANULOCYTES ABSOLUTE 0.02 10/3/uL (0.0-0.11); LYMPHOCYTES 29.3 %; LYMPHOCYTES ABSOLUTE 1.94 10/3/uL (0.67-4.30); MANUAL DIFF NO %; MEAN CORPUS HGB CONC 32.5 g/dL (32.0-36.0); MEAN CORPUSCULAR HEMOGLOB 28.5 pg (26.0-34.0); MEAN CORPUSCULAR VOLUME 87.5 fL (80-100); MEAN PLATELET VOLUME 9.9 fL (9.2-13.0); MONOCYTES 7.3 %; MONOCYTES ABSOLUTE 0.48 10/3/uL (0.21-1.20); NEUTROPHILS 57.7 %; NEUTROPHILS ABSOLUTE 3.82 10/3/uL (2.02-8.40); PLATELET COUNT 143 10/3/uL (150-400); RBC DISTRIBUTION WIDTH 14.3 % (12.0-16.0); RED CELL COUNT 3.69 10/6/uL (4.7-6.1); WHITE BLOOD CELLS 6.6 10/3/uL (4.5-10.5)
[2016-11-30 06:00] LABS: INTERNATIONAL NORMAL RATI 1.2 UNITS (-); PROTIME (NOT ORD) 14.9 SEC (12.0-14.5)
[2016-11-30 06:12] LABS: CALCIUM, SERUM 8.3 MG/DL (8.5-10.4); CHLORIDE, SERUM 104 MMOL/L (96-112); CHOL/HDL RATIO(NOT ORDER) 4.3 (0-5); CHOLESTEROL 164 MG/DL (< 200); CO2 (CARBON DIOXIDE) 27 MMOL/L (24-34); HDL CHOLESTEROL 38 MG/DL (> 39); LDL CHOLESTEROL 80 MG/DL (< 130); NON-HDL CHOLESTEROL 126 MG/DL (< 160); SODIUM, SERUM 141 MMOL/L (135-148); TRIGLYCERIDE 232 MG/DL (< 150)
[2016-11-30 06:21] LABS: BUN (BLOOD UREA NITROGEN) 21 MG/DL (6-23); CREATININE 2.92 MG/DL (0.70-1.30); GFR AFRICAN AMERICAN 24 ML/MIN (>=60); GFR NON AFRICAN AMERICAN 20 ML/MIN (>=60); GLUCOSE, SERUM 185 MG/DL (60-99); PHOSPHORUS, SERUM 2.5 MG/DL (2.5-4.5)
[2016-12-01 07:19] LABS: BASOPHILS 0.3 %; BASOPHILS ABSOLUTE 0.02 10/3/uL (0.0-0.16); EOSINOPHILS 4.6 %; HEMATOCRIT 31.3 % (40.0-51.0); HEMOGLOBIN 10.2 g/dL (13.6-17.8); IMMATURE GRANULOCYTES 0.2 %; IMMATURE GRANULOCYTES ABSOLUTE 0.01 10/3/uL (0.0-0.11); LYMPHOCYTES 24.3 %; LYMPHOCYTES ABSOLUTE 1.58 10/3/uL (0.67-4.30); MEAN CORPUS HGB CONC 32.6 g/dL (32.0-36.0); MEAN PLATELET VOLUME 10.2 fL (9.2-13.0); MONOCYTES 9.7 %; MONOCYTES ABSOLUTE 0.63 10/3/uL (0.21-1.20); NEUTROPHILS 60.9 %; NEUTROPHILS ABSOLUTE 3.95 10/3/uL (2.02-8.40); PLATELET COUNT 143 10/3/uL (150-400); RBC DISTRIBUTION WIDTH 14.6 % (12.0-16.0); RED CELL COUNT 3.64 10/6/uL (4.7-6.1); WHITE BLOOD CELLS 6.5 10/3/uL (4.5-10.5)
[2016-12-01 07:20] LABS: MANUAL DIFF NO %
[2016-12-01 07:26] LABS: ALBUMIN 2.8 G/DL (3.5-5.0); BUN (BLOOD UREA NITROGEN) 25 MG/DL (6-23); CALCIUM, SERUM 8.1 MG/DL (8.5-10.4); CHLORIDE, SERUM 102 MMOL/L (96-112); CO2 (CARBON DIOXIDE) 27 MMOL/L (24-34); CREATININE 3.56 MG/DL (0.70-1.30); GFR AFRICAN AMERICAN 19 ML/MIN (>=60); GFR NON AFRICAN AMERICAN 16 ML/MIN (>=60); GLUCOSE, SERUM 187 MG/DL (60-99); PHOSPHORUS, SERUM 3.6 MG/DL (2.5-4.5); SODIUM, SERUM 139 MMOL/L (135-148)
[2016-12-01 08:24] LABS: BASOPHILS 0.3 %; BASOPHILS ABSOLUTE 0.02 10/3/uL (0.0-0.16); EOSINOPHILS 4.7 %; HEMATOCRIT 30.7 % (40.0-51.0); HEMOGLOBIN 10.3 g/dL (13.6-17.8); IMMATURE GRANULOCYTES 0.5 %; IMMATURE GRANULOCYTES ABSOLUTE 0.03 10/3/uL (0.0-0.11); LYMPHOCYTES 26.8 %; LYMPHOCYTES ABSOLUTE 1.71 10/3/uL (0.67-4.30); MEAN CORPUS HGB CONC 33.6 g/dL (32.0-36.0); MEAN CORPUSCULAR HEMOGLOB 28.5 pg (26.0-34.0); MEAN CORPUSCULAR VOLUME 84.8 fL (80-100); MEAN PLATELET VOLUME 10.3 fL (9.2-13.0); MONOCYTES 8.2 %; MONOCYTES ABSOLUTE 0.52 10/3/uL (0.21-1.20); NEUTROPHILS 59.5 %; NEUTROPHILS ABSOLUTE 3.79 10/3/uL (2.02-8.40); PLATELET COUNT 150 10/3/uL (150-400); RBC DISTRIBUTION WIDTH 14.5 % (12.0-16.0); RED CELL COUNT 3.62 10/6/uL (4.7-6.1); WHITE BLOOD CELLS 6.4 10/3/uL (4.5-10.5)
[2016-12-01 08:27] LABS: MANUAL DIFF NO %
[2016-12-01 08:37] LABS: ALBUMIN 2.9 G/DL (3.5-5.0); BUN (BLOOD UREA NITROGEN) 26 MG/DL (6-23); CALCIUM, SERUM 8.5 MG/DL (8.5-10.4); CHLORIDE, SERUM 103 MMOL/L (96-112); CO2 (CARBON DIOXIDE) 26 MMOL/L (24-34); CREATININE 3.58 MG/DL (0.70-1.30); GFR AFRICAN AMERICAN 18 ML/MIN (>=60); GFR NON AFRICAN AMERICAN 16 ML/MIN (>=60); GLUCOSE, SERUM 173 MG/DL (60-99); PHOSPHORUS, SERUM 3.3 MG/DL (2.5-4.5); SODIUM, SERUM 139 MMOL/L (135-148)
[2016-12-02 03:55] LABS: ALBUMIN 2.9 G/DL (3.5-5.0); BUN (BLOOD UREA NITROGEN) 23 MG/DL (6-23); CALCIUM, SERUM 8.2 MG/DL (8.5-10.4); CHLORIDE, SERUM 103 MMOL/L (96-112); CO2 (CARBON DIOXIDE) 29 MMOL/L (24-34); CREATININE 3.97 MG/DL (0.70-1.30); GFR AFRICAN AMERICAN 16 ML/MIN (>=60); GFR NON AFRICAN AMERICAN 14 ML/MIN (>=60); GLUCOSE, SERUM 153 MG/DL (60-99); PHOSPHORUS, SERUM 3.2 MG/DL (2.5-4.5); POTASSIUM, SERUM 3.5 MMOL/L (3.5-5.3); SODIUM, SERUM 141 MMOL/L (135-148)
[2016-12-02 04:39] LABS: BASOPHILS 0.3 %; BASOPHILS ABSOLUTE 0.02 10/3/uL (0.0-0.16); EOSINOPHILS ABSOLUTE 0.34 10/3/uL (0.0-0.53); HEMATOCRIT 30.6 % (40.0-51.0); IMMATURE GRANULOCYTES 0.3 %; IMMATURE GRANULOCYTES ABSOLUTE 0.02 10/3/uL (0.0-0.11); LYMPHOCYTES 31.5 %; LYMPHOCYTES ABSOLUTE 2.13 10/3/uL (0.67-4.30); MEAN CORPUS HGB CONC 32.7 g/dL (32.0-36.0); MEAN CORPUSCULAR HEMOGLOB 28.3 pg (26.0-34.0); MEAN CORPUSCULAR VOLUME 86.7 fL (80-100); MEAN PLATELET VOLUME 10.3 fL (9.2-13.0); MONOCYTES 10.8 %; MONOCYTES ABSOLUTE 0.73 10/3/uL (0.21-1.20); NEUTROPHILS 52.1 %; NEUTROPHILS ABSOLUTE 3.53 10/3/uL (2.02-8.40); PLATELET COUNT 152 10/3/uL (150-400); RBC DISTRIBUTION WIDTH 14.7 % (12.0-16.0); RED CELL COUNT 3.53 10/6/uL (4.7-6.1); WHITE BLOOD CELLS 6.8 10/3/uL (4.5-10.5)
[2016-12-02 04:40] LABS: MANUAL DIFF NO %
[2016-12-04 09:17] LABS: BASOPHILS 0.3 %; BASOPHILS ABSOLUTE 0.02 10/3/uL (0.0-0.16); EOSINOPHILS 7.4 %; EOSINOPHILS ABSOLUTE 0.51 10/3/uL (0.0-0.53); HEMATOCRIT 30.1 % (40.0-51.0); HEMOGLOBIN 10.2 g/dL (13.6-17.8); IMMATURE GRANULOCYTES 0.6 %; IMMATURE GRANULOCYTES ABSOLUTE 0.04 10/3/uL (0.0-0.11); LYMPHOCYTES 28.5 %; LYMPHOCYTES ABSOLUTE 1.96 10/3/uL (0.67-4.30); MANUAL DIFF NO %; MEAN CORPUS HGB CONC 33.9 g/dL (32.0-36.0); MEAN CORPUSCULAR HEMOGLOB 28.6 pg (26.0-34.0); MEAN CORPUSCULAR VOLUME 84.3 fL (80-100); MEAN PLATELET VOLUME 10.4 fL (9.2-13.0); MONOCYTES 12.4 %; MONOCYTES ABSOLUTE 0.85 10/3/uL (0.21-1.20); NEUTROPHILS 50.8 %; NEUTROPHILS ABSOLUTE 3.49 10/3/uL (2.02-8.40); PLATELET COUNT 147 10/3/uL (150-400); RBC DISTRIBUTION WIDTH 14.5 % (12.0-16.0); RED CELL COUNT 3.57 10/6/uL (4.7-6.1); WHITE BLOOD CELLS 6.9 10/3/uL (4.5-10.5)
[2016-12-04 09:22] LABS: ALBUMIN 3.1 G/DL (3.5-5.0); CALCIUM, SERUM 9.1 MG/DL (8.5-10.4); CHLORIDE, SERUM 100 MMOL/L (96-112); CHOL/HDL RATIO(NOT ORDER) 4.2 (0-5); CHOLESTEROL 178 MG/DL (< 200); CO2 (CARBON DIOXIDE) 26 MMOL/L (24-34); GLUCOSE, SERUM 169 MG/DL (60-99); HDL CHOLESTEROL 42 MG/DL (> 39); LDL CHOLESTEROL 93 MG/DL (< 130); NON-HDL CHOLESTEROL 136 MG/DL (< 160); POTASSIUM, SERUM 4.1 MMOL/L (3.5-5.3); SODIUM, SERUM 140 MMOL/L (135-148); TRIGLYCERIDE 218 MG/DL (< 150)
[2016-12-04 09:23] LABS: BUN (BLOOD UREA NITROGEN) 43 MG/DL (6-23); CREATININE 4.76 MG/DL (0.70-1.30); GFR AFRICAN AMERICAN 13 ML/MIN (>=60); GFR NON AFRICAN AMERICAN 11 ML/MIN (>=60); PHOSPHORUS, SERUM 4.4 MG/DL (2.5-4.5)
[2016-12-06 05:36] LABS: BASOPHILS 0.6 %; BASOPHILS ABSOLUTE 0.04 10/3/uL (0.0-0.16); EOSINOPHILS 6.1 %; HEMATOCRIT 30.8 % (40.0-51.0); IMMATURE GRANULOCYTES 0.5 %; IMMATURE GRANULOCYTES ABSOLUTE 0.03 10/3/uL (0.0-0.11); LYMPHOCYTES 30.7 %; LYMPHOCYTES ABSOLUTE 2.02 10/3/uL (0.67-4.30); MANUAL DIFF NO %; MEAN CORPUS HGB CONC 32.5 g/dL (32.0-36.0); MEAN CORPUSCULAR HEMOGLOB 28.2 pg (26.0-34.0); MEAN CORPUSCULAR VOLUME 86.8 fL (80-100); MEAN PLATELET VOLUME 10.1 fL (9.2-13.0); MONOCYTES 10.9 %; MONOCYTES ABSOLUTE 0.72 10/3/uL (0.21-1.20); NEUTROPHILS 51.2 %; NEUTROPHILS ABSOLUTE 3.37 10/3/uL (2.02-8.40); PLATELET COUNT 151 10/3/uL (150-400); RBC DISTRIBUTION WIDTH 14.7 % (12.0-16.0); RED CELL COUNT 3.55 10/6/uL (4.7-6.1); WHITE BLOOD CELLS 6.6 10/3/uL (4.5-10.5)
[2016-12-06 05:45] LABS: PARTIAL THROMBO TIME 64.7 SEC (22.5-37.2)
[2016-12-06 05:48] LABS: ALBUMIN 2.9 G/DL (3.5-5.0); BUN (BLOOD UREA NITROGEN) 41 MG/DL (6-23); CALCIUM, SERUM 8.8 MG/DL (8.5-10.4); CHLORIDE, SERUM 105 MMOL/L (96-112); CO2 (CARBON DIOXIDE) 23 MMOL/L (24-34); GFR AFRICAN AMERICAN 15 ML/MIN (>=60); GFR NON AFRICAN AMERICAN 13 ML/MIN (>=60); GLUCOSE, SERUM 202 MG/DL (60-99); PHOSPHORUS, SERUM 3.5 MG/DL (2.5-4.5); POTASSIUM, SERUM 3.9 MMOL/L (3.5-5.3); SODIUM, SERUM 139 MMOL/L (135-148)
[2016-12-06 05:54] LABS: CREATININE 4.15 MG/DL (0.70-1.30)
[2016-12-07 20:21] LABS: ASCORBIC ACID (UR NOT ORDER) NEG (NEG); BILIRUBIN, URINE NEGATIVE (NEG); KETONE, URINE NEGATIVE (NEG); LEUKOCYTE ESTERASE(NOT OR NEG (NEG); WBC (NOT ORDERED) (RFLEX) < 1 (0-5)
[2016-12-08 03:56] LABS: BASOPHILS 0.3 %; BASOPHILS ABSOLUTE 0.02 10/3/uL (0.0-0.16); EOSINOPHILS 6.2 %; HEMATOCRIT 29.3 % (40.0-51.0); HEMOGLOBIN 9.5 g/dL (13.6-17.8); IMMATURE GRANULOCYTES 0.6 %; IMMATURE GRANULOCYTES ABSOLUTE 0.04 10/3/uL (0.0-0.11); LYMPHOCYTES 30.6 %; LYMPHOCYTES ABSOLUTE 1.97 10/3/uL (0.67-4.30); MEAN CORPUS HGB CONC 32.4 g/dL (32.0-36.0); MEAN CORPUSCULAR HEMOGLOB 27.9 pg (26.0-34.0); MEAN CORPUSCULAR VOLUME 86.2 fL (80-100); MEAN PLATELET VOLUME 9.6 fL (9.2-13.0); MONOCYTES 9.5 %; MONOCYTES ABSOLUTE 0.61 10/3/uL (0.21-1.20); NEUTROPHILS 52.8 %; NEUTROPHILS ABSOLUTE 3.39 10/3/uL (2.02-8.40); PLATELET COUNT 172 10/3/uL (150-400); RBC DISTRIBUTION WIDTH 14.8 % (12.0-16.0); WHITE BLOOD CELLS 6.4 10/3/uL (4.5-10.5)
[2016-12-08 03:57] LABS: MANUAL DIFF NO %
[2016-12-08 04:03] LABS: INTERNATIONAL NORMAL RATI 1.1 UNITS (-); PROTIME (NOT ORD) 14.2 SEC (12.0-14.5)
[2016-12-08 04:11] LABS: % IRON SAT 17 % (20-50); A/G RATIO 0.7 (0.7-1.9); ALBUMIN 3.1 G/DL (3.5-5.0); ALKALINE PHOSPHATASE 64 U/L (45-117); BUN (BLOOD UREA NITROGEN) 41 MG/DL (6-23); CALCIUM, SERUM 8.8 MG/DL (8.5-10.4); CHLORIDE, SERUM 97 MMOL/L (96-112); CO2 (CARBON DIOXIDE) 26 MMOL/L (24-34); CREATININE 4.16 MG/DL (0.70-1.30); GFR AFRICAN AMERICAN 15 ML/MIN (>=60); GFR NON AFRICAN AMERICAN 13 ML/MIN (>=60); GLOBULIN 4.3 G/DL (2.5-4.1); GLUCOSE, SERUM 238 MG/DL (60-99); IRON BINDING CAPACITY 232 MCG/DL (250-450); IRON, SERUM 39 MCG/DL (35-150); POTASSIUM, SERUM 4.1 MMOL/L (3.5-5.3); SGOT(AST) 26 U/L (5-40); SGPT(ALT) 22 U/L (5-65); SODIUM, SERUM 138 MMOL/L (135-148); TOTAL BILIRUBIN 0.3 MG/DL (0-1.2); TOTAL PROTEIN 7.4 G/DL (6.0-8.5)
[2016-12-08 07:51] LABS: BASOPHILS 0.3 %; BASOPHILS ABSOLUTE 0.02 10/3/uL (0.0-0.16); EOSINOPHILS 5.5 %; EOSINOPHILS ABSOLUTE 0.35 10/3/uL (0.0-0.53); HEMOGLOBIN 9.8 g/dL (13.6-17.8); IMMATURE GRANULOCYTES 0.8 %; IMMATURE GRANULOCYTES ABSOLUTE 0.05 10/3/uL (0.0-0.11); LYMPHOCYTES 27.9 %; LYMPHOCYTES ABSOLUTE 1.76 10/3/uL (0.67-4.30); MEAN CORPUS HGB CONC 32.7 g/dL (32.0-36.0); MEAN CORPUSCULAR HEMOGLOB 27.8 pg (26.0-34.0); MONOCYTES 10.9 %; MONOCYTES ABSOLUTE 0.69 10/3/uL (0.21-1.20); NEUTROPHILS 54.6 %; NEUTROPHILS ABSOLUTE 3.44 10/3/uL (2.02-8.40); PLATELET COUNT 172 10/3/uL (150-400); RBC DISTRIBUTION WIDTH 14.8 % (12.0-16.0); RED CELL COUNT 3.53 10/6/uL (4.7-6.1); WHITE BLOOD CELLS 6.3 10/3/uL (4.5-10.5)
[2016-12-08 07:54] LABS: MANUAL DIFF NO %
[2016-12-08 08:01] LABS: ALBUMIN 3.1 G/DL (3.5-5.0); BUN (BLOOD UREA NITROGEN) 41 MG/DL (6-23); CHLORIDE, SERUM 100 MMOL/L (96-112); CO2 (CARBON DIOXIDE) 25 MMOL/L (24-34); CREATININE 4.23 MG/DL (0.70-1.30); GFR AFRICAN AMERICAN 15 ML/MIN (>=60); GFR NON AFRICAN AMERICAN 13 ML/MIN (>=60); GLUCOSE, SERUM 211 MG/DL (60-99); PHOSPHORUS, SERUM 4.8 MG/DL (2.5-4.5); POTASSIUM, SERUM 4.1 MMOL/L (3.5-5.3); SODIUM, SERUM 138 MMOL/L (135-148)
[2016-12-08 11:08] LABS: BASOPHILS 0.3 %; BASOPHILS ABSOLUTE 0.02 10/3/uL (0.0-0.16); EOSINOPHILS 5.5 %; EOSINOPHILS ABSOLUTE 0.34 10/3/uL (0.0-0.53); HEMATOCRIT 32.3 % (40.0-51.0); HEMOGLOBIN 10.2 g/dL (13.6-17.8); IMMATURE GRANULOCYTES 0.5 %; IMMATURE GRANULOCYTES ABSOLUTE 0.03 10/3/uL (0.0-0.11); LYMPHOCYTES 22.3 %; LYMPHOCYTES ABSOLUTE 1.39 10/3/uL (0.67-4.30); MEAN CORPUS HGB CONC 31.6 g/dL (32.0-36.0); MEAN CORPUSCULAR HEMOGLOB 27.3 pg (26.0-34.0); MEAN CORPUSCULAR VOLUME 86.6 fL (80-100); MEAN PLATELET VOLUME 10.2 fL (9.2-13.0); MONOCYTES 9.1 %; MONOCYTES ABSOLUTE 0.57 10/3/uL (0.21-1.20); NEUTROPHILS 62.3 %; NEUTROPHILS ABSOLUTE 3.88 10/3/uL (2.02-8.40); PLATELET COUNT 188 10/3/uL (150-400); RED CELL COUNT 3.73 10/6/uL (4.7-6.1); WHITE BLOOD CELLS 6.2 10/3/uL (4.5-10.5)
[2016-12-08 11:09] LABS: MANUAL DIFF NO %
[2016-12-08 11:16] LABS: INTERNATIONAL NORMAL RATI 1.1 UNITS (-); PARTIAL THROMBO TIME 35.7 SEC (22.5-37.2)
[2016-12-08 11:21] LABS: CALCIUM, SERUM 9.4 MG/DL (8.5-10.4); CHLORIDE, SERUM 103 MMOL/L (96-112); GFR AFRICAN AMERICAN 23 ML/MIN (>=60); GFR NON AFRICAN AMERICAN 20 ML/MIN (>=60); GLUCOSE, SERUM 182 MG/DL (60-99); POTASSIUM, SERUM 4.1 MMOL/L (3.5-5.3); SODIUM, SERUM 142 MMOL/L (135-148)
[2016-12-08 11:23] LABS: BUN (BLOOD UREA NITROGEN) 26 MG/DL (6-23); CO2 (CARBON DIOXIDE) 30 MMOL/L (24-34); CREATININE 2.95 MG/DL (0.70-1.30)
[2016-12-08 19:20] LABS: BE (BASE EXCESS) -1.3 MEQ/L (0 +/- 2.5); CARBOXYHEMOGLOBIN 0.2 % (0-3); HCO3 (ACTUAL BICARBONATE) 22.5 MEQ/L (23-27); INSTRUMENT SERIAL # 11843; PCO2 (CO2 TENSION) 34 MMHG (35-45); PO2 (O2 TENSION) 286 MMHG (79-93); pH 7.43 (7.37-7.43)
[2016-12-08 19:21] LABS: HEMOBLOGIN CONTENT 9.7 G/DL (14-18); METHEMOGLOBIN 0.7 % (0-3); MODE SIMV; O2 CONTENT 14.1 VOL% (18-24); OPERATOR ID 32193; SAMPLE Arterial; TIDAL VOLUME 700 ML
[2016-12-08 19:46] LABS: TEG - RATE 10.2 MIN (5.0-10.0)
[2016-12-08 19:47] LABS: TEG - COAGULATION INDEX -1.1 (-3 TO 3); TEG - MAXIMUM AMPLITUDE 68.9 MM (50-70)
[2016-12-08 20:08] LABS: BASOPHILS 0.2 %; BASOPHILS ABSOLUTE 0.02 10/3/uL (0.0-0.16); EOSINOPHILS 0.8 %; IMMATURE GRANULOCYTES 0.9 %; IMMATURE GRANULOCYTES ABSOLUTE 0.11 10/3/uL (0.0-0.11); LYMPHOCYTES 8.6 %; LYMPHOCYTES ABSOLUTE 1.06 10/3/uL (0.67-4.30); MEAN CORPUSCULAR HEMOGLOB 28.7 pg (26.0-34.0); MEAN PLATELET VOLUME 10.5 fL (9.2-13.0); MONOCYTES 7.8 %; MONOCYTES ABSOLUTE 0.96 10/3/uL (0.21-1.20); NEUTROPHILS 81.7 %; PLATELET COUNT 133 10/3/uL (150-400); RBC DISTRIBUTION WIDTH 14.8 % (12.0-16.0); RED CELL COUNT 3.14 10/6/uL (4.7-6.1)
[2016-12-08 20:10] LABS: MANUAL DIFF NO %; MEAN CORPUS HGB CONC 33.3 g/dL (32.0-36.0); WHITE BLOOD CELLS 12.4 10/3/uL (4.5-10.5)
[2016-12-08 21:51] LABS: INTERNATIONAL NORMAL RATI 1.5 UNITS (-); PARTIAL THROMBO TIME 35.4 SEC (22.5-37.2)
[2016-12-08 21:53] LABS: PROTIME (NOT ORD) 18.2 SEC (12.0-14.5)
[2016-12-08 21:55] LABS: BUN (BLOOD UREA NITROGEN) 25 MG/DL (6-23); CALCIUM, SERUM 8.9 MG/DL (8.5-10.4); CHLORIDE, SERUM 114 MMOL/L (96-112); CREATININE 3.14 MG/DL (0.70-1.30); GFR AFRICAN AMERICAN 22 ML/MIN (>=60); GFR NON AFRICAN AMERICAN 19 ML/MIN (>=60); POTASSIUM, SERUM 4.7 MMOL/L (3.5-5.3); SODIUM, SERUM 147 MMOL/L (135-148)
[2016-12-08 21:56] LABS: CO2 (CARBON DIOXIDE) 22 MMOL/L (24-34); GLUCOSE, SERUM 129 MG/DL (60-99)
[2016-12-09 00:48] LABS: BASOPHILS 0.1 %; BASOPHILS ABSOLUTE 0.01 10/3/uL (0.0-0.16); EOSINOPHILS 0.2 %; EOSINOPHILS ABSOLUTE 0.02 10/3/uL (0.0-0.53); HEMATOCRIT 23.9 % (40.0-51.0); HEMOGLOBIN 7.8 g/dL (13.6-17.8); IMMATURE GRANULOCYTES 0.7 %; IMMATURE GRANULOCYTES ABSOLUTE 0.07 10/3/uL (0.0-0.11); LYMPHOCYTES 8.4 %; LYMPHOCYTES ABSOLUTE 0.83 10/3/uL (0.67-4.30); MANUAL DIFF NO %; MEAN CORPUS HGB CONC 32.6 g/dL (32.0-36.0); MEAN CORPUSCULAR VOLUME 85.7 fL (80-100); MEAN PLATELET VOLUME 10.3 fL (9.2-13.0); MONOCYTES ABSOLUTE 0.89 10/3/uL (0.21-1.20); NEUTROPHILS 81.6 %; NEUTROPHILS ABSOLUTE 8.11 10/3/uL (2.02-8.40); PLATELET COUNT 147 10/3/uL (150-400); RBC DISTRIBUTION WIDTH 14.9 % (12.0-16.0); RED CELL COUNT 2.79 10/6/uL (4.7-6.1); WHITE BLOOD CELLS 9.9 10/3/uL (4.5-10.5)
[2016-12-09 00:59] LABS: BUN (BLOOD UREA NITROGEN) 26 MG/DL (6-23); CALCIUM, SERUM 8.4 MG/DL (8.5-10.4); CHLORIDE, SERUM 112 MMOL/L (96-112); CO2 (CARBON DIOXIDE) 25 MMOL/L (24-34); CREATININE 3.13 MG/DL (0.70-1.30); GFR AFRICAN AMERICAN 22 ML/MIN (>=60); GFR NON AFRICAN AMERICAN 19 ML/MIN (>=60); POTASSIUM, SERUM 4.1 MMOL/L (3.5-5.3); SODIUM, SERUM 147 MMOL/L (135-148)
[2016-12-09 01:04] LABS: GLUCOSE, SERUM 99 MG/DL (60-99)
[2016-12-09 01:34] LABS: BE (BASE EXCESS) -1.3 MEQ/L (0 +/- 2.5); CARBOXYHEMOGLOBIN 0.3 % (0-3); HCO3 (ACTUAL BICARBONATE) 23.8 MEQ/L (23-27); HEMOBLOGIN CONTENT 8.1 G/DL (14-18); INSTRUMENT SERIAL # 11843; METHEMOGLOBIN 0.7 % (0-3); O2 CONTENT 11.4 VOL% (18-24); OPERATOR ID 32193; PCO2 (CO2 TENSION) 41 MMHG (35-45); PO2 (O2 TENSION) 151 MMHG (79-93); SAMPLE Arterial; pH 7.38 (7.37-7.43)
[2016-12-09 01:35] LABS: DEVICE NC
[2016-12-09 03:39] LABS: BASOPHILS 0.1 %; BASOPHILS ABSOLUTE 0.01 10/3/uL (0.0-0.16); EOSINOPHILS 0.2 %; EOSINOPHILS ABSOLUTE 0.02 10/3/uL (0.0-0.53); HEMATOCRIT 22.9 % (40.0-51.0); HEMOGLOBIN 7.5 g/dL (13.6-17.8); IMMATURE GRANULOCYTES 0.7 %; IMMATURE GRANULOCYTES ABSOLUTE 0.07 10/3/uL (0.0-0.11); LYMPHOCYTES ABSOLUTE 0.78 10/3/uL (0.67-4.30); MEAN CORPUS HGB CONC 32.8 g/dL (32.0-36.0); MEAN CORPUSCULAR HEMOGLOB 28.2 pg (26.0-34.0); MEAN CORPUSCULAR VOLUME 86.1 fL (80-100); MEAN PLATELET VOLUME 10.5 fL (9.2-13.0); MONOCYTES 10.7 %; MONOCYTES ABSOLUTE 1.04 10/3/uL (0.21-1.20); NEUTROPHILS 80.3 %; NEUTROPHILS ABSOLUTE 7.83 10/3/uL (2.02-8.40); PLATELET COUNT 137 10/3/uL (150-400); RED CELL COUNT 2.66 10/6/uL (4.7-6.1); WHITE BLOOD CELLS 9.8 10/3/uL (4.5-10.5)
[2016-12-09 03:40] LABS: MANUAL DIFF NO %
[2016-12-09 03:45] LABS: INTERNATIONAL NORMAL RATI 1.3 UNITS (-); PROTIME (NOT ORD) 15.7 SEC (12.0-14.5)
[2016-12-09 04:02] LABS: BUN (BLOOD UREA NITROGEN) 28 MG/DL (6-23); CALCIUM, SERUM 8.4 MG/DL (8.5-10.4); CHLORIDE, SERUM 113 MMOL/L (96-112); CO2 (CARBON DIOXIDE) 25 MMOL/L (24-34); CREATININE 3.14 MG/DL (0.70-1.30); GFR AFRICAN AMERICAN 22 ML/MIN (>=60); GFR NON AFRICAN AMERICAN 19 ML/MIN (>=60); GLUCOSE, SERUM 95 MG/DL (60-99); POTASSIUM, SERUM 4.7 MMOL/L (3.5-5.3); SODIUM, SERUM 146 MMOL/L (135-148)
[2016-12-09 13:22] LABS: BE (BASE EXCESS) -0.6 MEQ/L (0 +/- 2.5); CARBOXYHEMOGLOBIN 0.2 % (0-3); HCO3 (ACTUAL BICARBONATE) 22.5 MEQ/L (23-27); HEMOBLOGIN CONTENT 9.5 G/DL (14-18); INSTRUMENT SERIAL # 11843; METHEMOGLOBIN 0.6 % (0-3); MODE SIMV; O2 CONTENT 13.8 VOL% (18-24); OPERATOR ID 18642; PCO2 (CO2 TENSION) 31 MMHG (35-45); PO2 (O2 TENSION) 290 MMHG (79-93); PRESSURE SUPPORT 0 cm.H2O; SAMPLE Arterial; TIDAL VOLUME 700 ML; pH 7.47 (7.37-7.43)
[2016-12-09 13:38] LABS: HEMOGLOBIN 8.8 g/dL (13.6-17.8); PLATELET COUNT 103 10/3/uL (150-400)
[2016-12-09 13:39] LABS: HEMATOCRIT 25.5 % (40.0-51.0)
[2016-12-09 13:47] LABS: INTERNATIONAL NORMAL RATI 1.4 UNITS (-); PARTIAL THROMBO TIME 34.9 SEC (22.5-37.2); PROTIME (NOT ORD) 16.9 SEC (12.0-14.5)
[2016-12-09 13:49] LABS: CALCIUM, SERUM 7.5 MG/DL (8.5-10.4); CHLORIDE, SERUM 115 MMOL/L (96-112); CO2 (CARBON DIOXIDE) 22 MMOL/L (24-34); CREATININE 3.25 MG/DL (0.70-1.30); GFR AFRICAN AMERICAN 21 ML/MIN (>=60); GFR NON AFRICAN AMERICAN 18 ML/MIN (>=60); GLUCOSE, SERUM 94 MG/DL (60-99); POTASSIUM, SERUM 5.1 MMOL/L (3.5-5.3); SODIUM, SERUM 148 MMOL/L (135-148)
[2016-12-09 13:50] LABS: BUN (BLOOD UREA NITROGEN) 33 MG/DL (6-23)
[2016-12-09 16:53] LABS: HEMATOCRIT 27.3 % (40.0-51.0); HEMOGLOBIN 9.5 g/dL (13.6-17.8)
[2016-12-09 17:07] LABS: ALBUMIN 2.8 G/DL (3.5-5.0); BUN (BLOOD UREA NITROGEN) 34 MG/DL (6-23); CALCIUM, SERUM 8.2 MG/DL (8.5-10.4); CHLORIDE, SERUM 115 MMOL/L (96-112); CO2 (CARBON DIOXIDE) 22 MMOL/L (24-34); CREATININE 3.56 MG/DL (0.70-1.30); GFR AFRICAN AMERICAN 19 ML/MIN (>=60); GFR NON AFRICAN AMERICAN 16 ML/MIN (>=60); POTASSIUM, SERUM 4.5 MMOL/L (3.5-5.3); SGOT(AST) 85 U/L (5-40); SGPT(ALT) 16 U/L (5-65); SODIUM, SERUM 148 MMOL/L (135-148); TOTAL BILIRUBIN 0.4 MG/DL (0-1.2)
[2016-12-09 17:10] LABS: A/G RATIO 1.1 (0.7-1.9); ALKALINE PHOSPHATASE 36 U/L (45-117); GLOBULIN 2.6 G/DL (2.5-4.1); GLUCOSE, SERUM 121 MG/DL (60-99); PHOSPHORUS, SERUM 3.8 MG/DL (2.5-4.5); TOTAL PROTEIN 5.4 G/DL (6.0-8.5)
[2016-12-09 20:37] LABS: BE (BASE EXCESS) -7.8 MEQ/L (0 +/- 2.5); CARBOXYHEMOGLOBIN 0.2 % (0-3); DEVICE NC; HCO3 (ACTUAL BICARBONATE) 18.2 MEQ/L (23-27); HEMOBLOGIN CONTENT 10.7 G/DL (14-18); INSTRUMENT SERIAL # 11843; METHEMOGLOBIN 0.5 % (0-3); O2 CONTENT 14.5 VOL% (18-24); OPERATOR ID 32193; PCO2 (CO2 TENSION) 39 MMHG (35-45); PO2 (O2 TENSION) 98 MMHG (79-93); SAMPLE Arterial; pH 7.29 (7.37-7.43)
[2016-12-09 22:45] LABS: BASOPHILS 0.1 %; BASOPHILS ABSOLUTE 0.01 10/3/uL (0.0-0.16); EOSINOPHILS 0 %; HEMATOCRIT 28.8 % (40.0-51.0); HEMOGLOBIN 9.8 g/dL (13.6-17.8); IMMATURE GRANULOCYTES 0.4 %; IMMATURE GRANULOCYTES ABSOLUTE 0.06 10/3/uL (0.0-0.11); LYMPHOCYTES 9.1 %; LYMPHOCYTES ABSOLUTE 1.31 10/3/uL (0.67-4.30); MEAN CORPUSCULAR HEMOGLOB 29.3 pg (26.0-34.0); MEAN PLATELET VOLUME 10.5 fL (9.2-13.0); MONOCYTES 17.1 %; MONOCYTES ABSOLUTE 2.46 10/3/uL (0.21-1.20); NEUTROPHILS 73.3 %; NEUTROPHILS ABSOLUTE 10.54 10/3/uL (2.02-8.40); RBC DISTRIBUTION WIDTH 15.2 % (12.0-16.0)
[2016-12-09 22:49] LABS: MANUAL DIFF NO %; PLATELET COUNT 136 10/3/uL (150-400); RED CELL COUNT 3.35 10/6/uL (4.7-6.1); WHITE BLOOD CELLS 14.4 10/3/uL (4.5-10.5)
[2016-12-09 22:57] LABS: CHLORIDE, SERUM 110 MMOL/L (96-112); CO2 (CARBON DIOXIDE) 23 MMOL/L (24-34); GLUCOSE, SERUM 107 MG/DL (60-99); PHOSPHORUS, SERUM 2.9 MG/DL (2.5-4.5); POTASSIUM, SERUM 4.9 MMOL/L (3.5-5.3); SODIUM, SERUM 144 MMOL/L (135-148)
[2016-12-09 22:59] LABS: BUN (BLOOD UREA NITROGEN) 24 MG/DL (6-23); CALCIUM, SERUM 6.3 MG/DL (8.5-10.4); CREATININE 2.58 MG/DL (0.70-1.30); GFR AFRICAN AMERICAN 27 ML/MIN (>=60); GFR NON AFRICAN AMERICAN 24 ML/MIN (>=60)
[2016-12-10 03:54] LABS: BASOPHILS 0.1 %; BASOPHILS ABSOLUTE 0.01 10/3/uL (0.0-0.16); EOSINOPHILS 0.1 %; EOSINOPHILS ABSOLUTE 0.01 10/3/uL (0.0-0.53); HEMOGLOBIN 9.4 g/dL (13.6-17.8); IMMATURE GRANULOCYTES 0.6 %; IMMATURE GRANULOCYTES ABSOLUTE 0.08 10/3/uL (0.0-0.11); LYMPHOCYTES 10.3 %; MEAN CORPUS HGB CONC 33.6 g/dL (32.0-36.0); MEAN CORPUSCULAR HEMOGLOB 28.9 pg (26.0-34.0); MEAN CORPUSCULAR VOLUME 86.2 fL (80-100); MEAN PLATELET VOLUME 10.8 fL (9.2-13.0); MONOCYTES 13.3 %; MONOCYTES ABSOLUTE 1.94 10/3/uL (0.21-1.20); NEUTROPHILS 75.6 %; PLATELET COUNT 129 10/3/uL (150-400); RBC DISTRIBUTION WIDTH 15.2 % (12.0-16.0); RED CELL COUNT 3.25 10/6/uL (4.7-6.1); WHITE BLOOD CELLS 14.5 10/3/uL (4.5-10.5)
[2016-12-10 03:55] LABS: MANUAL DIFF NO %
[2016-12-10 04:02] LABS: INTERNATIONAL NORMAL RATI 1.2 UNITS (-); PROTIME (NOT ORD) 14.9 SEC (12.0-14.5)
[2016-12-10 04:18] LABS: CHLORIDE, SERUM 111 MMOL/L (96-112); CO2 (CARBON DIOXIDE) 21 MMOL/L (24-34); CREATININE 2.27 MG/DL (0.70-1.30); GFR AFRICAN AMERICAN 32 ML/MIN (>=60); GFR NON AFRICAN AMERICAN 28 ML/MIN (>=60); GLUCOSE, SERUM 102 MG/DL (60-99); POTASSIUM, SERUM 4.4 MMOL/L (3.5-5.3); SODIUM, SERUM 147 MMOL/L (135-148)
[2016-12-10 04:20] LABS: BUN (BLOOD UREA NITROGEN) 20 MG/DL (6-23); CALCIUM, SERUM 5.9 MG/DL (8.5-10.4)
[2016-12-10 05:01] LABS: BE (BASE EXCESS) -5.6 MEQ/L (0 +/- 2.5); CARBOXYHEMOGLOBIN 0.2 % (0-3); HCO3 (ACTUAL BICARBONATE) 19.9 MEQ/L (23-27); HEMOBLOGIN CONTENT 10.1 G/DL (14-18); INSTRUMENT SERIAL # 11843; METHEMOGLOBIN 0.4 % (0-3); O2 CONTENT 13.2 VOL% (18-24); OPERATOR ID 13415; PCO2 (CO2 TENSION) 39 MMHG (35-45); PO2 (O2 TENSION) 73 MMHG (79-93); SAMPLE Arterial; pH 7.33 (7.37-7.43)
[2016-12-10 09:36] LABS: BASOPHILS 0.1 %; BASOPHILS ABSOLUTE 0.01 10/3/uL (0.0-0.16); EOSINOPHILS 0.1 %; EOSINOPHILS ABSOLUTE 0.01 10/3/uL (0.0-0.53); HEMATOCRIT 26.1 % (40.0-51.0); HEMOGLOBIN 8.9 g/dL (13.6-17.8); IMMATURE GRANULOCYTES 0.6 %; IMMATURE GRANULOCYTES ABSOLUTE 0.08 10/3/uL (0.0-0.11); LYMPHOCYTES 10.1 %; LYMPHOCYTES ABSOLUTE 1.28 10/3/uL (0.67-4.30); MEAN CORPUS HGB CONC 34.1 g/dL (32.0-36.0); MEAN CORPUSCULAR HEMOGLOB 29.6 pg (26.0-34.0); MEAN CORPUSCULAR VOLUME 86.7 fL (80-100); MEAN PLATELET VOLUME 9.6 fL (9.2-13.0); MONOCYTES 10.5 %; MONOCYTES ABSOLUTE 1.33 10/3/uL (0.21-1.20); NEUTROPHILS 78.6 %; NEUTROPHILS ABSOLUTE 9.93 10/3/uL (2.02-8.40); PLATELET COUNT 113 10/3/uL (150-400); RBC DISTRIBUTION WIDTH 15.4 % (12.0-16.0); RED CELL COUNT 3.01 10/6/uL (4.7-6.1); WHITE BLOOD CELLS 12.6 10/3/uL (4.5-10.5)
[2016-12-10 09:37] LABS: MANUAL DIFF NO %
[2016-12-10 09:49] LABS: CHLORIDE, SERUM 109 MMOL/L (96-112); CO2 (CARBON DIOXIDE) 21 MMOL/L (24-34); CREATININE 1.88 MG/DL (0.70-1.30); GFR AFRICAN AMERICAN 40 ML/MIN (>=60); GFR NON AFRICAN AMERICAN 35 ML/MIN (>=60); GLUCOSE, SERUM 87 MG/DL (60-99); POTASSIUM, SERUM 4.1 MMOL/L (3.5-5.3); SODIUM, SERUM 143 MMOL/L (135-148)
[2016-12-10 09:52] LABS: BUN (BLOOD UREA NITROGEN) 16 MG/DL (6-23); CALCIUM, SERUM 5.7 MG/DL (8.5-10.4)
[2016-12-10 09:52] LABS: CARBOXYHEMOGLOBIN 0.3 % (0-3); HCO3 (ACTUAL BICARBONATE) 20.3 MEQ/L (23-27); HEMOBLOGIN CONTENT 9.5 G/DL (14-18); INSTRUMENT SERIAL # 11843; METHEMOGLOBIN 0.4 % (0-3); O2 CONTENT 12.5 VOL% (18-24); PCO2 (CO2 TENSION) 34 MMHG (35-45); PO2 (O2 TENSION) 69 MMHG (79-93); SAMPLE Arterial; pH 7.39 (7.37-7.43)
[2016-12-10 11:20] LABS: PROCALCITONIN 1.18 ng/mL (<0.5)
[2016-12-10 13:17] LABS: ANISOCYTOSIS 1+ (5-10/OIF) (0-5/OIF); PLATELET ESTIMATE ADQ (ADEQUATE)
[2016-12-10 16:34] LABS: BASOPHILS 0.1 %; BASOPHILS ABSOLUTE 0.01 10/3/uL (0.0-0.16); EOSINOPHILS 0.1 %; EOSINOPHILS ABSOLUTE 0.01 10/3/uL (0.0-0.53); HEMATOCRIT 25.7 % (40.0-51.0); HEMOGLOBIN 8.7 g/dL (13.6-17.8); IMMATURE GRANULOCYTES 0.5 %; IMMATURE GRANULOCYTES ABSOLUTE 0.07 10/3/uL (0.0-0.11); LYMPHOCYTES 8.8 %; LYMPHOCYTES ABSOLUTE 1.16 10/3/uL (0.67-4.30); MEAN CORPUS HGB CONC 33.9 g/dL (32.0-36.0); MEAN CORPUSCULAR HEMOGLOB 29.4 pg (26.0-34.0); MEAN CORPUSCULAR VOLUME 86.8 fL (80-100); MEAN PLATELET VOLUME 10.5 fL (9.2-13.0); MONOCYTES ABSOLUTE 1.32 10/3/uL (0.21-1.20); NEUTROPHILS 80.5 %; NEUTROPHILS ABSOLUTE 10.65 10/3/uL (2.02-8.40); PLATELET COUNT 116 10/3/uL (150-400); RBC DISTRIBUTION WIDTH 15.4 % (12.0-16.0); RED CELL COUNT 2.96 10/6/uL (4.7-6.1); WHITE BLOOD CELLS 13.2 10/3/uL (4.5-10.5)
[2016-12-10 16:35] LABS: MANUAL DIFF NO %
[2016-12-10 16:45] LABS: BUN (BLOOD UREA NITROGEN) 15 MG/DL (6-23); CALCIUM, SERUM 6.7 MG/DL (8.5-10.4); CHLORIDE, SERUM 108 MMOL/L (96-112); CO2 (CARBON DIOXIDE) 21 MMOL/L (24-34); CREATININE 1.84 MG/DL (0.70-1.30); GFR AFRICAN AMERICAN 41 ML/MIN (>=60); GFR NON AFRICAN AMERICAN 36 ML/MIN (>=60); GLUCOSE, SERUM 100 MG/DL (60-99); SODIUM, SERUM 142 MMOL/L (135-148)
[2016-12-10 21:52] LABS: BUN (BLOOD UREA NITROGEN) 14 MG/DL (6-23); CALCIUM, SERUM 6.7 MG/DL (8.5-10.4); CHLORIDE, SERUM 108 MMOL/L (96-112); CO2 (CARBON DIOXIDE) 20 MMOL/L (24-34); CREATININE 1.73 MG/DL (0.70-1.30); GFR AFRICAN AMERICAN 44 ML/MIN (>=60); GFR NON AFRICAN AMERICAN 38 ML/MIN (>=60); GLUCOSE, SERUM 83 MG/DL (60-99); PHOSPHORUS, SERUM 2.3 MG/DL (2.5-4.5); POTASSIUM, SERUM 4.4 MMOL/L (3.5-5.3); SODIUM, SERUM 142 MMOL/L (135-148)
[2016-12-10 21:53] LABS: BASOPHILS 0.1 %; BASOPHILS ABSOLUTE 0.01 10/3/uL (0.0-0.16); EOSINOPHILS 0 %; HEMATOCRIT 25.1 % (40.0-51.0); HEMOGLOBIN 8.3 g/dL (13.6-17.8); IMMATURE GRANULOCYTES 0.5 %; IMMATURE GRANULOCYTES ABSOLUTE 0.07 10/3/uL (0.0-0.11); MEAN CORPUS HGB CONC 33.1 g/dL (32.0-36.0); MEAN CORPUSCULAR HEMOGLOB 28.7 pg (26.0-34.0); MEAN CORPUSCULAR VOLUME 86.9 fL (80-100); MEAN PLATELET VOLUME 10.2 fL (9.2-13.0); MONOCYTES 13.9 %; MONOCYTES ABSOLUTE 1.95 10/3/uL (0.21-1.20); NEUTROPHILS 75.5 %; NEUTROPHILS ABSOLUTE 10.55 10/3/uL (2.02-8.40); PLATELET COUNT 111 10/3/uL (150-400); RBC DISTRIBUTION WIDTH 15.6 % (12.0-16.0); RED CELL COUNT 2.89 10/6/uL (4.7-6.1)
[2016-12-10 21:54] LABS: MANUAL DIFF NO %
[2016-12-10 22:02] LABS: INTERNATIONAL NORMAL RATI 1.2 UNITS (-); PARTIAL THROMBO TIME 36.7 SEC (22.5-37.2); PROTIME (NOT ORD) 15.3 SEC (12.0-14.5)
[2016-12-11 03:22] LABS: BE (BASE EXCESS) -3.2 MEQ/L (0 +/- 2.5); CARBOXYHEMOGLOBIN 0.3 % (0-3); DEVICE NC; HCO3 (ACTUAL BICARBONATE) 21.3 MEQ/L (23-27); HEMOBLOGIN CONTENT 9.9 G/DL (14-18); INSTRUMENT SERIAL # 11843; METHEMOGLOBIN 0.4 % (0-3); O2 CONTENT 13.3 VOL% (18-24); PCO2 (CO2 TENSION) 36 MMHG (35-45); PO2 (O2 TENSION) 83 MMHG (79-93); SAMPLE Arterial; pH 7.39 (7.37-7.43)
[2016-12-11 03:46] LABS: BASOPHILS 0.1 %; BASOPHILS ABSOLUTE 0.01 10/3/uL (0.0-0.16); EOSINOPHILS 0 %; HEMATOCRIT 24.9 % (40.0-51.0); HEMOGLOBIN 8.6 g/dL (13.6-17.8); IMMATURE GRANULOCYTES 0.6 %; IMMATURE GRANULOCYTES ABSOLUTE 0.07 10/3/uL (0.0-0.11); LYMPHOCYTES 12.6 %; MEAN CORPUS HGB CONC 34.5 g/dL (32.0-36.0); MEAN CORPUSCULAR HEMOGLOB 30.3 pg (26.0-34.0); MEAN CORPUSCULAR VOLUME 87.7 fL (80-100); MEAN PLATELET VOLUME 10.2 fL (9.2-13.0); MONOCYTES 12.5 %; MONOCYTES ABSOLUTE 1.48 10/3/uL (0.21-1.20); NEUTROPHILS 74.2 %; NEUTROPHILS ABSOLUTE 8.82 10/3/uL (2.02-8.40); PLATELET COUNT 108 10/3/uL (150-400); RBC DISTRIBUTION WIDTH 15.4 % (12.0-16.0); RED CELL COUNT 2.84 10/6/uL (4.7-6.1); WHITE BLOOD CELLS 11.9 10/3/uL (4.5-10.5)
[2016-12-11 03:50] LABS: MANUAL DIFF NO %
[2016-12-11 04:02] LABS: A/G RATIO 0.9 (0.7-1.9); ALBUMIN 2.9 G/DL (3.5-5.0); BUN (BLOOD UREA NITROGEN) 14 MG/DL (6-23); CALCIUM, SERUM 7.1 MG/DL (8.5-10.4); CHLORIDE, SERUM 107 MMOL/L (96-112); CO2 (CARBON DIOXIDE) 21 MMOL/L (24-34); CREATININE 1.73 MG/DL (0.70-1.30); GFR AFRICAN AMERICAN 44 ML/MIN (>=60); GFR NON AFRICAN AMERICAN 38 ML/MIN (>=60); GLOBULIN 3.1 G/DL (2.5-4.1); GLUCOSE, SERUM 98 MG/DL (60-99); POTASSIUM, SERUM 4.5 MMOL/L (3.5-5.3); SGOT(AST) 160 U/L (5-40); SGPT(ALT) 33 U/L (5-65); SODIUM, SERUM 141 MMOL/L (135-148); TOTAL BILIRUBIN 0.6 MG/DL (0-1.2)
[2016-12-11 04:04] LABS: ALKALINE PHOSPHATASE 49 U/L (45-117); PHOSPHORUS, SERUM 3.6 MG/DL (2.5-4.5)
[2016-12-11 11:16] LABS: BASOPHILS 0.1 %; BASOPHILS ABSOLUTE 0.01 10/3/uL (0.0-0.16); EOSINOPHILS 0.1 %; EOSINOPHILS ABSOLUTE 0.01 10/3/uL (0.0-0.53); HEMATOCRIT 24.8 % (40.0-51.0); HEMOGLOBIN 8.3 g/dL (13.6-17.8); IMMATURE GRANULOCYTES 0.5 %; IMMATURE GRANULOCYTES ABSOLUTE 0.07 10/3/uL (0.0-0.11); LYMPHOCYTES 9.1 %; LYMPHOCYTES ABSOLUTE 1.18 10/3/uL (0.67-4.30); MANUAL DIFF NO %; MEAN CORPUS HGB CONC 33.5 g/dL (32.0-36.0); MEAN CORPUSCULAR HEMOGLOB 29.4 pg (26.0-34.0); MEAN CORPUSCULAR VOLUME 87.9 fL (80-100); MEAN PLATELET VOLUME 9.8 fL (9.2-13.0); MONOCYTES 10.6 %; MONOCYTES ABSOLUTE 1.38 10/3/uL (0.21-1.20); NEUTROPHILS 79.6 %; NEUTROPHILS ABSOLUTE 10.36 10/3/uL (2.02-8.40); PLATELET COUNT 107 10/3/uL (150-400); RBC DISTRIBUTION WIDTH 15.6 % (12.0-16.0); RED CELL COUNT 2.82 10/6/uL (4.7-6.1)
[2016-12-11 11:30] LABS: BUN (BLOOD UREA NITROGEN) 14 MG/DL (6-23); CALCIUM, SERUM 7.5 MG/DL (8.5-10.4); CHLORIDE, SERUM 107 MMOL/L (96-112); CO2 (CARBON DIOXIDE) 20 MMOL/L (24-34); GFR AFRICAN AMERICAN 53 ML/MIN (>=60); GFR NON AFRICAN AMERICAN 46 ML/MIN (>=60); PHOSPHORUS, SERUM 2.9 MG/DL (2.5-4.5); POTASSIUM, SERUM 4.4 MMOL/L (3.5-5.3); SODIUM, SERUM 140 MMOL/L (135-148)
[2016-12-11 11:32] LABS: GLUCOSE, SERUM 123 MG/DL (60-99)
[2016-12-11 15:01] LABS: BE (BASE EXCESS) -5.3 MEQ/L (0 +/- 2.5); CARBOXYHEMOGLOBIN 0.3 % (0-3); HCO3 (ACTUAL BICARBONATE) 19.4 MEQ/L (23-27); HEMOBLOGIN CONTENT 9.1 G/DL (14-18); INSTRUMENT SERIAL # 11843; METHEMOGLOBIN 0.4 % (0-3); O2 CONTENT 11.7 VOL% (18-24); OPERATOR ID 19104; PCO2 (CO2 TENSION) 35 MMHG (35-45); PO2 (O2 TENSION) 64 MMHG (79-93); SAMPLE Arterial; pH 7.37 (7.37-7.43)
[2016-12-11 17:29] LABS: BASOPHILS 0 %; EOSINOPHILS 0.1 %; EOSINOPHILS ABSOLUTE 0.01 10/3/uL (0.0-0.53); HEMOGLOBIN 8.4 g/dL (13.6-17.8); IMMATURE GRANULOCYTES 0.5 %; IMMATURE GRANULOCYTES ABSOLUTE 0.07 10/3/uL (0.0-0.11); LYMPHOCYTES 10.3 %; LYMPHOCYTES ABSOLUTE 1.43 10/3/uL (0.67-4.30); MANUAL DIFF NO %; MEAN CORPUS HGB CONC 33.6 g/dL (32.0-36.0); MEAN CORPUSCULAR HEMOGLOB 29.6 pg (26.0-34.0); MEAN PLATELET VOLUME 9.7 fL (9.2-13.0); MONOCYTES 11.1 %; MONOCYTES ABSOLUTE 1.53 10/3/uL (0.21-1.20); NEUTROPHILS ABSOLUTE 10.78 10/3/uL (2.02-8.40); PLATELET COUNT 118 10/3/uL (150-400); RBC DISTRIBUTION WIDTH 15.7 % (12.0-16.0); RED CELL COUNT 2.84 10/6/uL (4.7-6.1); WHITE BLOOD CELLS 13.8 10/3/uL (4.5-10.5)
[2016-12-11 17:45] LABS: A/G RATIO 0.9 (0.7-1.9); ALKALINE PHOSPHATASE 54 U/L (45-117); BUN (BLOOD UREA NITROGEN) 14 MG/DL (6-23); CALCIUM, SERUM 7.4 MG/DL (8.5-10.4); CHLORIDE, SERUM 104 MMOL/L (96-112); CO2 (CARBON DIOXIDE) 19 MMOL/L (24-34); CREATININE 1.45 MG/DL (0.70-1.30); GFR AFRICAN AMERICAN 55 ML/MIN (>=60); GFR NON AFRICAN AMERICAN 47 ML/MIN (>=60); GLOBULIN 3.3 G/DL (2.5-4.1); GLUCOSE, SERUM 113 MG/DL (60-99); POTASSIUM, SERUM 4.5 MMOL/L (3.5-5.3); SGOT(AST) 177 U/L (5-40); SGPT(ALT) 41 U/L (5-65); SODIUM, SERUM 138 MMOL/L (135-148); TOTAL BILIRUBIN 0.5 MG/DL (0-1.2); TOTAL PROTEIN 6.3 G/DL (6.0-8.5)
[2016-12-11 22:43] LABS: BASOPHILS 0 %; EOSINOPHILS 0.1 %; EOSINOPHILS ABSOLUTE 0.01 10/3/uL (0.0-0.53); HEMATOCRIT 24.9 % (40.0-51.0); HEMOGLOBIN 8.4 g/dL (13.6-17.8); IMMATURE GRANULOCYTES 0.4 %; IMMATURE GRANULOCYTES ABSOLUTE 0.05 10/3/uL (0.0-0.11); LYMPHOCYTES 9.2 %; LYMPHOCYTES ABSOLUTE 1.03 10/3/uL (0.67-4.30); MANUAL DIFF NO %; MEAN CORPUS HGB CONC 33.7 g/dL (32.0-36.0); MEAN CORPUSCULAR HEMOGLOB 29.5 pg (26.0-34.0); MEAN CORPUSCULAR VOLUME 87.4 fL (80-100); MEAN PLATELET VOLUME 9.9 fL (9.2-13.0); MONOCYTES 10.9 %; MONOCYTES ABSOLUTE 1.22 10/3/uL (0.21-1.20); NEUTROPHILS 79.4 %; NEUTROPHILS ABSOLUTE 8.92 10/3/uL (2.02-8.40); PLATELET COUNT 119 10/3/uL (150-400); RBC DISTRIBUTION WIDTH 15.5 % (12.0-16.0); RED CELL COUNT 2.85 10/6/uL (4.7-6.1); WHITE BLOOD CELLS 11.2 10/3/uL (4.5-10.5)
[2016-12-11 22:48] LABS: BUN (BLOOD UREA NITROGEN) 16 MG/DL (6-23); CALCIUM, SERUM 7.1 MG/DL (8.5-10.4); CHLORIDE, SERUM 108 MMOL/L (96-112); CO2 (CARBON DIOXIDE) 21 MMOL/L (24-34); CREATININE 1.38 MG/DL (0.70-1.30); GFR AFRICAN AMERICAN 58 ML/MIN (>=60); GFR NON AFRICAN AMERICAN 50 ML/MIN (>=60); GLUCOSE, SERUM 64 MG/DL (60-99); POTASSIUM, SERUM 4.1 MMOL/L (3.5-5.3); SODIUM, SERUM 140 MMOL/L (135-148)
[2016-12-11 23:44] LABS: PHOSPHORUS, SERUM 2.4 MG/DL (2.5-4.5)
[2016-12-12 03:16] LABS: BASOPHILS 0.2 %; BASOPHILS ABSOLUTE 0.01 10/3/uL (0.0-0.16); EOSINOPHILS 0 %; HEMOGLOBIN 9.5 g/dL (13.6-17.8); IMMATURE GRANULOCYTES 1.2 %; IMMATURE GRANULOCYTES ABSOLUTE 0.07 10/3/uL (0.0-0.11); LYMPHOCYTES 17.4 %; LYMPHOCYTES ABSOLUTE 1.03 10/3/uL (0.67-4.30); MEAN CORPUS HGB CONC 33.9 g/dL (32.0-36.0); MEAN CORPUSCULAR HEMOGLOB 29.4 pg (26.0-34.0); MEAN CORPUSCULAR VOLUME 86.7 fL (80-100); MEAN PLATELET VOLUME 10.1 fL (9.2-13.0); MONOCYTES 3.9 %; MONOCYTES ABSOLUTE 0.23 10/3/uL (0.21-1.20); NEUTROPHILS 77.3 %; NEUTROPHILS ABSOLUTE 4.59 10/3/uL (2.02-8.40); NUCLEATED RED BLOOD CELLS 2.6 /100WBC (0-0); PLATELET COUNT 137 10/3/uL (150-400); RBC DISTRIBUTION WIDTH 15.3 % (12.0-16.0); RED CELL COUNT 3.23 10/6/uL (4.7-6.1)
[2016-12-12 03:18] LABS: MANUAL DIFF NO %; WHITE BLOOD CELLS 5.9 10/3/uL (4.5-10.5)
[2016-12-12 03:31] LABS: A/G RATIO 0.9 (0.7-1.9); ALBUMIN 2.7 G/DL (3.5-5.0); ALKALINE PHOSPHATASE 59 U/L (45-117); BUN (BLOOD UREA NITROGEN) 17 MG/DL (6-23); CHLORIDE, SERUM 108 MMOL/L (96-112); CO2 (CARBON DIOXIDE) 19 MMOL/L (24-34); CREATININE 1.41 MG/DL (0.70-1.30); GFR AFRICAN AMERICAN 57 ML/MIN (>=60); GFR NON AFRICAN AMERICAN 49 ML/MIN (>=60); GLOBULIN 3.1 G/DL (2.5-4.1); POTASSIUM, SERUM 4.3 MMOL/L (3.5-5.3); SGOT(AST) 191 U/L (5-40); SGPT(ALT) 42 U/L (5-65); SODIUM, SERUM 141 MMOL/L (135-148); TOTAL BILIRUBIN 0.6 MG/DL (0-1.2); TOTAL PROTEIN 5.8 G/DL (6.0-8.5)
[2016-12-12 03:33] LABS: GLUCOSE, SERUM 89 MG/DL (60-99)
[2016-12-12 04:14] LABS: BE (BASE EXCESS) -7.7 MEQ/L (0 +/- 2.5); CARBOXYHEMOGLOBIN 0.3 % (0-3); DEVICE NC; HCO3 (ACTUAL BICARBONATE) 17.9 MEQ/L (23-27); HEMOBLOGIN CONTENT 11.2 G/DL (14-18); INSTRUMENT SERIAL # 11843; METHEMOGLOBIN 0.4 % (0-3); O2 CONTENT 15.2 VOL% (18-24); PCO2 (CO2 TENSION) 37 MMHG (35-45); PO2 (O2 TENSION) 97 MMHG (79-93); SAMPLE Arterial; pH 7.31 (7.37-7.43)
[2016-12-12 10:36] LABS: BE (BASE EXCESS) -7.3 MEQ/L (0 +/- 2.5); CARBOXYHEMOGLOBIN 0.3 % (0-3); DEVICE NC; HEMOBLOGIN CONTENT 9.4 G/DL (14-18); INSTRUMENT SERIAL # 11843; METHEMOGLOBIN 0.5 % (0-3); O2 CONTENT 12.8 VOL% (18-24); OPERATOR ID 13715; PCO2 (CO2 TENSION) 35 MMHG (35-45); PO2 (O2 TENSION) 102 MMHG (79-93); SAMPLE Arterial; pH 7.33 (7.37-7.43)
[2016-12-12 10:43] LABS: BASOPHILS 0.1 %; BASOPHILS ABSOLUTE 0.01 10/3/uL (0.0-0.16); EOSINOPHILS 0.1 %; EOSINOPHILS ABSOLUTE 0.01 10/3/uL (0.0-0.53); HEMATOCRIT 25.2 % (40.0-51.0); HEMOGLOBIN 8.8 g/dL (13.6-17.8); IMMATURE GRANULOCYTES 0.5 %; LYMPHOCYTES 4.4 %; LYMPHOCYTES ABSOLUTE 0.81 10/3/uL (0.67-4.30); MANUAL DIFF NO %; MEAN CORPUS HGB CONC 34.9 g/dL (32.0-36.0); MEAN PLATELET VOLUME 9.7 fL (9.2-13.0); MONOCYTES 9.6 %; MONOCYTES ABSOLUTE 1.76 10/3/uL (0.21-1.20); NEUTROPHILS 85.3 %; NEUTROPHILS ABSOLUTE 15.62 10/3/uL (2.02-8.40); NUCLEATED RED BLOOD CELLS 0.5 /100WBC (0-0); PLATELET COUNT 131 10/3/uL (150-400); RBC DISTRIBUTION WIDTH 15.4 % (12.0-16.0); RED CELL COUNT 2.93 10/6/uL (4.7-6.1); WHITE BLOOD CELLS 18.3 10/3/uL (4.5-10.5)
[2016-12-12 10:49] LABS: BUN (BLOOD UREA NITROGEN) 16 MG/DL (6-23); CALCIUM, SERUM 7.4 MG/DL (8.5-10.4); CHLORIDE, SERUM 104 MMOL/L (96-112); CO2 (CARBON DIOXIDE) 19 MMOL/L (24-34); GFR AFRICAN AMERICAN 63 ML/MIN (>=60); GFR NON AFRICAN AMERICAN 54 ML/MIN (>=60); POTASSIUM, SERUM 4.2 MMOL/L (3.5-5.3); SODIUM, SERUM 139 MMOL/L (135-148)
[2016-12-12 10:50] LABS: GLUCOSE, SERUM 195 MG/DL (60-99)
[2016-12-12 14:43] LABS: BASOPHILS 0.1 %; BASOPHILS ABSOLUTE 0.01 10/3/uL (0.0-0.16); EOSINOPHILS 0.1 %; EOSINOPHILS ABSOLUTE 0.01 10/3/uL (0.0-0.53); HEMATOCRIT 24.4 % (40.0-51.0); HEMOGLOBIN 8.3 g/dL (13.6-17.8); IMMATURE GRANULOCYTES 0.4 %; IMMATURE GRANULOCYTES ABSOLUTE 0.06 10/3/uL (0.0-0.11); LYMPHOCYTES 4.7 %; LYMPHOCYTES ABSOLUTE 0.78 10/3/uL (0.67-4.30); MEAN CORPUSCULAR HEMOGLOB 29.3 pg (26.0-34.0); MEAN CORPUSCULAR VOLUME 86.2 fL (80-100); MEAN PLATELET VOLUME 9.5 fL (9.2-13.0); MONOCYTES ABSOLUTE 1.17 10/3/uL (0.21-1.20); NEUTROPHILS 87.7 %; NEUTROPHILS ABSOLUTE 14.58 10/3/uL (2.02-8.40); PLATELET COUNT 123 10/3/uL (150-400); RBC DISTRIBUTION WIDTH 15.4 % (12.0-16.0); RED CELL COUNT 2.83 10/6/uL (4.7-6.1); WHITE BLOOD CELLS 16.6 10/3/uL (4.5-10.5)
[2016-12-12 14:45] LABS: MANUAL DIFF NO %
[2016-12-12 14:52] LABS: BUN (BLOOD UREA NITROGEN) 18 MG/DL (6-23); CALCIUM, SERUM 7.1 MG/DL (8.5-10.4); CHLORIDE, SERUM 105 MMOL/L (96-112); CO2 (CARBON DIOXIDE) 19 MMOL/L (24-34); CREATININE 1.43 MG/DL (0.70-1.30); GFR AFRICAN AMERICAN 56 ML/MIN (>=60); GFR NON AFRICAN AMERICAN 48 ML/MIN (>=60); PHOSPHORUS, SERUM 3.5 MG/DL (2.5-4.5); POTASSIUM, SERUM 4.3 MMOL/L (3.5-5.3); SODIUM, SERUM 138 MMOL/L (135-148)
[2016-12-12 14:53] LABS: GLUCOSE, SERUM 245 MG/DL (60-99)
[2016-12-12 22:00] LABS: BASOPHILS 0.1 %; BASOPHILS ABSOLUTE 0.01 10/3/uL (0.0-0.16); EOSINOPHILS 0.4 %; EOSINOPHILS ABSOLUTE 0.05 10/3/uL (0.0-0.53); IMMATURE GRANULOCYTES 0.2 %; IMMATURE GRANULOCYTES ABSOLUTE 0.03 10/3/uL (0.0-0.11); LYMPHOCYTES 11.8 %; LYMPHOCYTES ABSOLUTE 1.61 10/3/uL (0.67-4.30); MEAN CORPUS HGB CONC 33.3 g/dL (32.0-36.0); MONOCYTES 9.1 %; MONOCYTES ABSOLUTE 1.25 10/3/uL (0.21-1.20); NEUTROPHILS 78.4 %; NEUTROPHILS ABSOLUTE 10.74 10/3/uL (2.02-8.40); NUCLEATED RED BLOOD CELLS 0.4 /100WBC (0-0); PLATELET COUNT 115 10/3/uL (150-400); RBC DISTRIBUTION WIDTH 15.3 % (12.0-16.0); RED CELL COUNT 2.76 10/6/uL (4.7-6.1); WHITE BLOOD CELLS 13.7 10/3/uL (4.5-10.5)
[2016-12-12 22:01] LABS: MANUAL DIFF NO %
[2016-12-12 22:11] LABS: BUN (BLOOD UREA NITROGEN) 15 MG/DL (6-23); CALCIUM, SERUM 7.4 MG/DL (8.5-10.4); CHLORIDE, SERUM 103 MMOL/L (96-112); CREATININE 1.21 MG/DL (0.70-1.30); GFR AFRICAN AMERICAN 68 ML/MIN (>=60); GFR NON AFRICAN AMERICAN 59 ML/MIN (>=60); POTASSIUM, SERUM 3.8 MMOL/L (3.5-5.3); SODIUM, SERUM 139 MMOL/L (135-148)
[2016-12-12 22:12] LABS: CO2 (CARBON DIOXIDE) 23 MMOL/L (24-34); GLUCOSE, SERUM 121 MG/DL (60-99)
[2016-12-13 04:34] LABS: BE (BASE EXCESS) -1.8 MEQ/L (0 +/- 2.5); CARBOXYHEMOGLOBIN 0.3 % (0-3); HEMOBLOGIN CONTENT 8.3 G/DL (14-18); INSTRUMENT SERIAL # 11843; METHEMOGLOBIN 0.4 % (0-3); O2 CONTENT 10.9 VOL% (18-24); PCO2 (CO2 TENSION) 34 MMHG (35-45); PO2 (O2 TENSION) 72 MMHG (79-93); SAMPLE Arterial; pH 7.44 (7.37-7.43)
[2016-12-13 04:34] LABS: BASOPHILS 0.1 %; BASOPHILS ABSOLUTE 0.01 10/3/uL (0.0-0.16); EOSINOPHILS 0.9 %; HEMATOCRIT 22.7 % (40.0-51.0); HEMOGLOBIN 7.7 g/dL (13.6-17.8); IMMATURE GRANULOCYTES 0.3 %; IMMATURE GRANULOCYTES ABSOLUTE 0.03 10/3/uL (0.0-0.11); LYMPHOCYTES 12.4 %; LYMPHOCYTES ABSOLUTE 1.42 10/3/uL (0.67-4.30); MEAN CORPUS HGB CONC 33.9 g/dL (32.0-36.0); MEAN CORPUSCULAR HEMOGLOB 29.5 pg (26.0-34.0); MEAN PLATELET VOLUME 9.1 fL (9.2-13.0); MONOCYTES 10.4 %; MONOCYTES ABSOLUTE 1.19 10/3/uL (0.21-1.20); NEUTROPHILS 75.9 %; NEUTROPHILS ABSOLUTE 8.74 10/3/uL (2.02-8.40); PLATELET COUNT 110 10/3/uL (150-400); RBC DISTRIBUTION WIDTH 15.1 % (12.0-16.0); RED CELL COUNT 2.61 10/6/uL (4.7-6.1); WHITE BLOOD CELLS 11.5 10/3/uL (4.5-10.5)
[2016-12-13 04:38] LABS: MANUAL DIFF NO %
[2016-12-13 05:06] LABS: A/G RATIO 1.1 (0.7-1.9); ALBUMIN 3.1 G/DL (3.5-5.0); ALKALINE PHOSPHATASE 55 U/L (45-117); BUN (BLOOD UREA NITROGEN) 15 MG/DL (6-23); CALCIUM, SERUM 7.2 MG/DL (8.5-10.4); CHLORIDE, SERUM 104 MMOL/L (96-112); CO2 (CARBON DIOXIDE) 25 MMOL/L (24-34); CREATININE 1.26 MG/DL (0.70-1.30); GFR AFRICAN AMERICAN 65 ML/MIN (>=60); GFR NON AFRICAN AMERICAN 56 ML/MIN (>=60); GLOBULIN 2.7 G/DL (2.5-4.1); GLUCOSE, SERUM 109 MG/DL (60-99); POTASSIUM, SERUM 3.7 MMOL/L (3.5-5.3); SGOT(AST) 143 U/L (5-40); SGPT(ALT) 40 U/L (5-65); SODIUM, SERUM 141 MMOL/L (135-148); TOTAL BILIRUBIN 0.7 MG/DL (0-1.2); TOTAL PROTEIN 5.8 G/DL (6.0-8.5)
[2016-12-13 05:10] LABS: PROCALCITONIN 5.42 ng/mL (<0.5)
[2016-12-13 05:16] LABS: PHOSPHORUS, SERUM 3.8 MG/DL (2.5-4.5)
[2016-12-13 10:38] LABS: BASOPHILS 0.1 %; BASOPHILS ABSOLUTE 0.01 10/3/uL (0.0-0.16); EOSINOPHILS 0.4 %; EOSINOPHILS ABSOLUTE 0.05 10/3/uL (0.0-0.53); HEMATOCRIT 23.1 % (40.0-51.0); HEMOGLOBIN 7.8 g/dL (13.6-17.8); IMMATURE GRANULOCYTES 0.4 %; IMMATURE GRANULOCYTES ABSOLUTE 0.04 10/3/uL (0.0-0.11); LYMPHOCYTES 9.7 %; LYMPHOCYTES ABSOLUTE 1.09 10/3/uL (0.67-4.30); MEAN CORPUS HGB CONC 33.8 g/dL (32.0-36.0); MEAN CORPUSCULAR HEMOGLOB 29.4 pg (26.0-34.0); MEAN CORPUSCULAR VOLUME 87.2 fL (80-100); MEAN PLATELET VOLUME 9.1 fL (9.2-13.0); MONOCYTES 7.9 %; MONOCYTES ABSOLUTE 0.89 10/3/uL (0.21-1.20); NEUTROPHILS 81.5 %; NEUTROPHILS ABSOLUTE 9.12 10/3/uL (2.02-8.40); PLATELET COUNT 112 10/3/uL (150-400); RBC DISTRIBUTION WIDTH 15.2 % (12.0-16.0); RED CELL COUNT 2.65 10/6/uL (4.7-6.1); WHITE BLOOD CELLS 11.2 10/3/uL (4.5-10.5)
[2016-12-13 10:40] LABS: MANUAL DIFF NO %
[2016-12-13 10:49] LABS: BUN (BLOOD UREA NITROGEN) 16 MG/DL (6-23); CALCIUM, SERUM 7.2 MG/DL (8.5-10.4); CHLORIDE, SERUM 99 MMOL/L (96-112); CO2 (CARBON DIOXIDE) 23 MMOL/L (24-34); CREATININE 1.25 MG/DL (0.70-1.30); GFR AFRICAN AMERICAN 66 ML/MIN (>=60); GFR NON AFRICAN AMERICAN 57 ML/MIN (>=60); SODIUM, SERUM 137 MMOL/L (135-148)
[2016-12-13 10:50] LABS: GLUCOSE, SERUM 163 MG/DL (60-99)
[2016-12-13 16:01] LABS: BASOPHILS 0.1 %; BASOPHILS ABSOLUTE 0.01 10/3/uL (0.0-0.16); EOSINOPHILS 0.4 %; EOSINOPHILS ABSOLUTE 0.05 10/3/uL (0.0-0.53); HEMATOCRIT 22.7 % (40.0-51.0); HEMOGLOBIN 7.7 g/dL (13.6-17.8); IMMATURE GRANULOCYTES 0.3 %; IMMATURE GRANULOCYTES ABSOLUTE 0.04 10/3/uL (0.0-0.11); LYMPHOCYTES 11.7 %; LYMPHOCYTES ABSOLUTE 1.34 10/3/uL (0.67-4.30); MANUAL DIFF NO %; MEAN CORPUS HGB CONC 33.9 g/dL (32.0-36.0); MEAN CORPUSCULAR HEMOGLOB 29.7 pg (26.0-34.0); MEAN CORPUSCULAR VOLUME 87.6 fL (80-100); MONOCYTES 9.2 %; MONOCYTES ABSOLUTE 1.06 10/3/uL (0.21-1.20); NEUTROPHILS 78.3 %; NEUTROPHILS ABSOLUTE 8.97 10/3/uL (2.02-8.40); NUCLEATED RED BLOOD CELLS 0.5 /100WBC (0-0); PLATELET COUNT 102 10/3/uL (150-400); RBC DISTRIBUTION WIDTH 15.1 % (12.0-16.0); RED CELL COUNT 2.59 10/6/uL (4.7-6.1); WHITE BLOOD CELLS 11.5 10/3/uL (4.5-10.5)
[2016-12-13 16:07] LABS: BUN (BLOOD UREA NITROGEN) 18 MG/DL (6-23); CALCIUM, SERUM 7.3 MG/DL (8.5-10.4); CHLORIDE, SERUM 99 MMOL/L (96-112); CO2 (CARBON DIOXIDE) 24 MMOL/L (24-34); CREATININE 1.21 MG/DL (0.70-1.30); GFR AFRICAN AMERICAN 68 ML/MIN (>=60); GFR NON AFRICAN AMERICAN 59 ML/MIN (>=60); GLUCOSE, SERUM 139 MG/DL (60-99); PHOSPHORUS, SERUM 2.9 MG/DL (2.5-4.5); POTASSIUM, SERUM 3.9 MMOL/L (3.5-5.3); SODIUM, SERUM 139 MMOL/L (135-148)
[2016-12-13 22:20] LABS: BASOPHILS 0 %; EOSINOPHILS 0.2 %; EOSINOPHILS ABSOLUTE 0.02 10/3/uL (0.0-0.53); HEMATOCRIT 23.5 % (40.0-51.0); HEMOGLOBIN 7.9 g/dL (13.6-17.8); IMMATURE GRANULOCYTES 0.5 %; IMMATURE GRANULOCYTES ABSOLUTE 0.06 10/3/uL (0.0-0.11); LYMPHOCYTES 13.3 %; LYMPHOCYTES ABSOLUTE 1.46 10/3/uL (0.67-4.30); MEAN CORPUS HGB CONC 33.6 g/dL (32.0-36.0); MEAN CORPUSCULAR HEMOGLOB 29.5 pg (26.0-34.0); MEAN CORPUSCULAR VOLUME 87.7 fL (80-100); MEAN PLATELET VOLUME 8.9 fL (9.2-13.0); MONOCYTES 8.5 %; MONOCYTES ABSOLUTE 0.93 10/3/uL (0.21-1.20); NEUTROPHILS 77.5 %; NEUTROPHILS ABSOLUTE 8.48 10/3/uL (2.02-8.40); PLATELET COUNT 107 10/3/uL (150-400); RBC DISTRIBUTION WIDTH 15.3 % (12.0-16.0); RED CELL COUNT 2.68 10/6/uL (4.7-6.1)
[2016-12-13 22:22] LABS: MANUAL DIFF NO %
[2016-12-13 22:32] LABS: BUN (BLOOD UREA NITROGEN) 20 MG/DL (6-23); CALCIUM, SERUM 7.5 MG/DL (8.5-10.4); CHLORIDE, SERUM 99 MMOL/L (96-112); CO2 (CARBON DIOXIDE) 23 MMOL/L (24-34); CREATININE 1.41 MG/DL (0.70-1.30); GFR AFRICAN AMERICAN 57 ML/MIN (>=60); GFR NON AFRICAN AMERICAN 49 ML/MIN (>=60); GLUCOSE, SERUM 134 MG/DL (60-99); POTASSIUM, SERUM 4.3 MMOL/L (3.5-5.3); SODIUM, SERUM 138 MMOL/L (135-148)
[2016-12-14 03:58] LABS: BASOPHILS 0.1 %; BASOPHILS ABSOLUTE 0.01 10/3/uL (0.0-0.16); EOSINOPHILS 0.5 %; EOSINOPHILS ABSOLUTE 0.05 10/3/uL (0.0-0.53); HEMATOCRIT 21.7 % (40.0-51.0); HEMOGLOBIN 7.4 g/dL (13.6-17.8); IMMATURE GRANULOCYTES 0.7 %; IMMATURE GRANULOCYTES ABSOLUTE 0.08 10/3/uL (0.0-0.11); LYMPHOCYTES 14.8 %; LYMPHOCYTES ABSOLUTE 1.62 10/3/uL (0.67-4.30); MEAN CORPUS HGB CONC 34.1 g/dL (32.0-36.0); MEAN CORPUSCULAR HEMOGLOB 29.8 pg (26.0-34.0); MEAN CORPUSCULAR VOLUME 87.5 fL (80-100); MEAN PLATELET VOLUME 9.5 fL (9.2-13.0); MONOCYTES 9.8 %; MONOCYTES ABSOLUTE 1.08 10/3/uL (0.21-1.20); NEUTROPHILS 74.1 %; NEUTROPHILS ABSOLUTE 8.13 10/3/uL (2.02-8.40); NUCLEATED RED BLOOD CELLS 1.3 /100WBC (0-0); PLATELET COUNT 110 10/3/uL (150-400); RBC DISTRIBUTION WIDTH 15.3 % (12.0-16.0); RED CELL COUNT 2.48 10/6/uL (4.7-6.1)
[2016-12-14 03:59] LABS: MANUAL DIFF NO %
[2016-12-14 04:12] LABS: A/G RATIO 1.2 (0.7-1.9); ALBUMIN 3.3 G/DL (3.5-5.0); BUN (BLOOD UREA NITROGEN) 18 MG/DL (6-23); CALCIUM, SERUM 7.4 MG/DL (8.5-10.4); CHLORIDE, SERUM 99 MMOL/L (96-112); CO2 (CARBON DIOXIDE) 25 MMOL/L (24-34); CREATININE 1.31 MG/DL (0.70-1.30); GFR AFRICAN AMERICAN 62 ML/MIN (>=60); GFR NON AFRICAN AMERICAN 54 ML/MIN (>=60); GLOBULIN 2.7 G/DL (2.5-4.1); GLUCOSE, SERUM 132 MG/DL (60-99); PHOSPHORUS, SERUM 2.9 MG/DL (2.5-4.5); POTASSIUM, SERUM 3.9 MMOL/L (3.5-5.3); SGOT(AST) 143 U/L (5-40); SGPT(ALT) 54 U/L (5-65); SODIUM, SERUM 138 MMOL/L (135-148)
[2016-12-14 04:12] LABS: ALLENS TEST Pos; CARBOXYHEMOGLOBIN 0.3 % (0-3); HCO3 (ACTUAL BICARBONATE) 23.1 MEQ/L (23-27); HEMOBLOGIN CONTENT 8.2 G/DL (14-18); INSTRUMENT SERIAL # 11843; METHEMOGLOBIN 0.5 % (0-3); O2 CONTENT 10.7 VOL% (18-24); OPERATOR ID 13744; PCO2 (CO2 TENSION) 35 MMHG (35-45); PO2 (O2 TENSION) 70 MMHG (79-93); SAMPLE Arterial; pH 7.43 (7.37-7.43)
[2016-12-14 04:13] LABS: ALKALINE PHOSPHATASE 72 U/L (45-117); TOTAL BILIRUBIN 1.6 MG/DL (0-1.2)
[2016-12-14 10:46] LABS: BASOPHILS 0.1 %; BASOPHILS ABSOLUTE 0.01 10/3/uL (0.0-0.16); EOSINOPHILS 0.8 %; EOSINOPHILS ABSOLUTE 0.09 10/3/uL (0.0-0.53); HEMOGLOBIN 7.7 g/dL (13.6-17.8); IMMATURE GRANULOCYTES 0.8 %; LYMPHOCYTES ABSOLUTE 1.42 10/3/uL (0.67-4.30); MANUAL DIFF NO %; MEAN CORPUS HGB CONC 33.5 g/dL (32.0-36.0); MEAN CORPUSCULAR HEMOGLOB 29.4 pg (26.0-34.0); MEAN CORPUSCULAR VOLUME 87.8 fL (80-100); MEAN PLATELET VOLUME 9.4 fL (9.2-13.0); MONOCYTES 8.7 %; MONOCYTES ABSOLUTE 1.03 10/3/uL (0.21-1.20); NEUTROPHILS 77.6 %; NEUTROPHILS ABSOLUTE 9.18 10/3/uL (2.02-8.40); NUCLEATED RED BLOOD CELLS 1.6 /100WBC (0-0); PLATELET COUNT 116 10/3/uL (150-400); RBC DISTRIBUTION WIDTH 15.5 % (12.0-16.0); RED CELL COUNT 2.62 10/6/uL (4.7-6.1); WHITE BLOOD CELLS 11.8 10/3/uL (4.5-10.5)
[2016-12-14 10:52] LABS: BUN (BLOOD UREA NITROGEN) 19 MG/DL (6-23); CALCIUM, SERUM 7.9 MG/DL (8.5-10.4); CHLORIDE, SERUM 100 MMOL/L (96-112); CO2 (CARBON DIOXIDE) 24 MMOL/L (24-34); CREATININE 1.34 MG/DL (0.70-1.30); GFR AFRICAN AMERICAN 60 ML/MIN (>=60); GFR NON AFRICAN AMERICAN 52 ML/MIN (>=60); GLUCOSE, SERUM 152 MG/DL (60-99); SODIUM, SERUM 138 MMOL/L (135-148)
[2016-12-14 16:07] LABS: BASOPHILS 0.1 %; BASOPHILS ABSOLUTE 0.01 10/3/uL (0.0-0.16); EOSINOPHILS 0.7 %; EOSINOPHILS ABSOLUTE 0.09 10/3/uL (0.0-0.53); HEMATOCRIT 22.9 % (40.0-51.0); HEMOGLOBIN 7.4 g/dL (13.6-17.8); IMMATURE GRANULOCYTES 0.8 %; LYMPHOCYTES ABSOLUTE 1.35 10/3/uL (0.67-4.30); MEAN CORPUS HGB CONC 32.3 g/dL (32.0-36.0); MEAN CORPUSCULAR HEMOGLOB 28.8 pg (26.0-34.0); MEAN CORPUSCULAR VOLUME 89.1 fL (80-100); MEAN PLATELET VOLUME 8.7 fL (9.2-13.0); MONOCYTES 9.5 %; MONOCYTES ABSOLUTE 1.16 10/3/uL (0.21-1.20); NEUTROPHILS 77.9 %; NEUTROPHILS ABSOLUTE 9.56 10/3/uL (2.02-8.40); PLATELET COUNT 112 10/3/uL (150-400); RBC DISTRIBUTION WIDTH 15.3 % (12.0-16.0); RED CELL COUNT 2.57 10/6/uL (4.7-6.1); WHITE BLOOD CELLS 12.3 10/3/uL (4.5-10.5)
[2016-12-14 16:09] LABS: MANUAL DIFF NO %
[2016-12-14 16:18] LABS: BUN (BLOOD UREA NITROGEN) 19 MG/DL (6-23); CALCIUM, SERUM 7.4 MG/DL (8.5-10.4); CHLORIDE, SERUM 97 MMOL/L (96-112); CO2 (CARBON DIOXIDE) 26 MMOL/L (24-34); CREATININE 1.39 MG/DL (0.70-1.30); GFR AFRICAN AMERICAN 58 ML/MIN (>=60); GFR NON AFRICAN AMERICAN 50 ML/MIN (>=60); PHOSPHORUS, SERUM 2.2 MG/DL (2.5-4.5); SODIUM, SERUM 136 MMOL/L (135-148)
[2016-12-14 16:19] LABS: GLUCOSE, SERUM 202 MG/DL (60-99)
[2016-12-14 22:39] LABS: BASOPHILS 0.1 %; BASOPHILS ABSOLUTE 0.01 10/3/uL (0.0-0.16); EOSINOPHILS 1.5 %; EOSINOPHILS ABSOLUTE 0.18 10/3/uL (0.0-0.53); HEMOGLOBIN 7.6 g/dL (13.6-17.8); IMMATURE GRANULOCYTES 1.5 %; IMMATURE GRANULOCYTES ABSOLUTE 0.18 10/3/uL (0.0-0.11); LYMPHOCYTES 13.8 %; LYMPHOCYTES ABSOLUTE 1.66 10/3/uL (0.67-4.30); MANUAL DIFF NO %; MEAN CORPUSCULAR HEMOGLOB 29.2 pg (26.0-34.0); MEAN CORPUSCULAR VOLUME 88.5 fL (80-100); MEAN PLATELET VOLUME 8.8 fL (9.2-13.0); MONOCYTES 9.7 %; MONOCYTES ABSOLUTE 1.17 10/3/uL (0.21-1.20); NEUTROPHILS 73.4 %; NEUTROPHILS ABSOLUTE 8.87 10/3/uL (2.02-8.40); NUCLEATED RED BLOOD CELLS 2.1 /100WBC (0-0); PLATELET COUNT 113 10/3/uL (150-400); RBC DISTRIBUTION WIDTH 15.5 % (12.0-16.0); WHITE BLOOD CELLS 12.1 10/3/uL (4.5-10.5)
[2016-12-14 22:45] LABS: BUN (BLOOD UREA NITROGEN) 18 MG/DL (6-23); CALCIUM, SERUM 7.5 MG/DL (8.5-10.4); CHLORIDE, SERUM 97 MMOL/L (96-112); CO2 (CARBON DIOXIDE) 26 MMOL/L (24-34); CREATININE 1.26 MG/DL (0.70-1.30); GFR AFRICAN AMERICAN 65 ML/MIN (>=60); GFR NON AFRICAN AMERICAN 56 ML/MIN (>=60); POTASSIUM, SERUM 3.7 MMOL/L (3.5-5.3); SODIUM, SERUM 138 MMOL/L (135-148)
[2016-12-14 22:46] LABS: GLUCOSE, SERUM 147 MG/DL (60-99)
[2016-12-15 04:19] LABS: ALLENS TEST Pos; BE (BASE EXCESS) -0.5 MEQ/L (0 +/- 2.5); HCO3 (ACTUAL BICARBONATE) 23.4 MEQ/L (23-27); HEMOBLOGIN CONTENT 8.5 G/DL (14-18); INSTRUMENT SERIAL # 11843; METHEMOGLOBIN 0.6 % (0-3); O2 CONTENT 11.1 VOL% (18-24); OPERATOR ID 32193; PCO2 (CO2 TENSION) 35 MMHG (35-45); PO2 (O2 TENSION) 70 MMHG (79-93); SAMPLE Arterial; pH 7.45 (7.37-7.43)
[2016-12-15 04:43] LABS: A/G RATIO 1.4 (0.7-1.9); ALBUMIN 3.9 G/DL (3.5-5.0); BUN (BLOOD UREA NITROGEN) 17 MG/DL (6-23); CHLORIDE, SERUM 100 MMOL/L (96-112); CO2 (CARBON DIOXIDE) 27 MMOL/L (24-34); GFR AFRICAN AMERICAN 63 ML/MIN (>=60); GFR NON AFRICAN AMERICAN 54 ML/MIN (>=60); GLOBULIN 2.8 G/DL (2.5-4.1); GLUCOSE, SERUM 132 MG/DL (60-99); PHOSPHORUS, SERUM 1.9 MG/DL (2.5-4.5); POTASSIUM, SERUM 3.6 MMOL/L (3.5-5.3); SGOT(AST) 140 U/L (5-40); SGPT(ALT) 65 U/L (5-65); SODIUM, SERUM 139 MMOL/L (135-148); TOTAL PROTEIN 6.7 G/DL (6.0-8.5)
[2016-12-15 04:48] LABS: ALKALINE PHOSPHATASE 88 U/L (45-117); BASOPHILS 0.1 %; BASOPHILS ABSOLUTE 0.01 10/3/uL (0.0-0.16); EOSINOPHILS 1.7 %; EOSINOPHILS ABSOLUTE 0.18 10/3/uL (0.0-0.53); HEMATOCRIT 23.7 % (40.0-51.0); HEMOGLOBIN 7.9 g/dL (13.6-17.8); IMMATURE GRANULOCYTES 1.3 %; IMMATURE GRANULOCYTES ABSOLUTE 0.14 10/3/uL (0.0-0.11); LYMPHOCYTES 12.5 %; LYMPHOCYTES ABSOLUTE 1.34 10/3/uL (0.67-4.30); MEAN CORPUS HGB CONC 33.3 g/dL (32.0-36.0); MEAN CORPUSCULAR HEMOGLOB 29.7 pg (26.0-34.0); MEAN CORPUSCULAR VOLUME 89.1 fL (80-100); MEAN PLATELET VOLUME 9.3 fL (9.2-13.0); MONOCYTES 11.3 %; MONOCYTES ABSOLUTE 1.22 10/3/uL (0.21-1.20); NEUTROPHILS 73.1 %; NEUTROPHILS ABSOLUTE 7.86 10/3/uL (2.02-8.40); NUCLEATED RED BLOOD CELLS 1.6 /100WBC (0-0); PLATELET COUNT 117 10/3/uL (150-400); RBC DISTRIBUTION WIDTH 15.6 % (12.0-16.0); RED CELL COUNT 2.66 10/6/uL (4.7-6.1); WHITE BLOOD CELLS 10.8 10/3/uL (4.5-10.5)
[2016-12-15 04:49] LABS: MANUAL DIFF NO %
[2016-12-15 11:50] LABS: BASOPHILS 0.2 %; BASOPHILS ABSOLUTE 0.02 10/3/uL (0.0-0.16); EOSINOPHILS 1.5 %; EOSINOPHILS ABSOLUTE 0.15 10/3/uL (0.0-0.53); HEMATOCRIT 22.6 % (40.0-51.0); HEMOGLOBIN 7.5 g/dL (13.6-17.8); IMMATURE GRANULOCYTES 1.8 %; IMMATURE GRANULOCYTES ABSOLUTE 0.18 10/3/uL (0.0-0.11); LYMPHOCYTES 11.5 %; LYMPHOCYTES ABSOLUTE 1.13 10/3/uL (0.67-4.30); MEAN CORPUS HGB CONC 33.2 g/dL (32.0-36.0); MEAN CORPUSCULAR HEMOGLOB 29.8 pg (26.0-34.0); MEAN CORPUSCULAR VOLUME 89.7 fL (80-100); MEAN PLATELET VOLUME 8.9 fL (9.2-13.0); MONOCYTES 9.3 %; MONOCYTES ABSOLUTE 0.92 10/3/uL (0.21-1.20); NEUTROPHILS 75.7 %; NEUTROPHILS ABSOLUTE 7.45 10/3/uL (2.02-8.40); NUCLEATED RED BLOOD CELLS 2.2 /100WBC (0-0); PLATELET COUNT 110 10/3/uL (150-400); RED CELL COUNT 2.52 10/6/uL (4.7-6.1); WHITE BLOOD CELLS 9.9 10/3/uL (4.5-10.5)
[2016-12-15 11:54] LABS: BUN (BLOOD UREA NITROGEN) 20 MG/DL (6-23); CALCIUM, SERUM 7.7 MG/DL (8.5-10.4); CHLORIDE, SERUM 96 MMOL/L (96-112); CO2 (CARBON DIOXIDE) 27 MMOL/L (24-34); GFR AFRICAN AMERICAN 53 ML/MIN (>=60); GFR NON AFRICAN AMERICAN 46 ML/MIN (>=60); GLUCOSE, SERUM 179 MG/DL (60-99); MANUAL DIFF NO %; POTASSIUM, SERUM 3.6 MMOL/L (3.5-5.3); SODIUM, SERUM 136 MMOL/L (135-148)
[2016-12-16 03:24] LABS: BASOPHILS 0.2 %; BASOPHILS ABSOLUTE 0.02 10/3/uL (0.0-0.16); EOSINOPHILS 2.3 %; EOSINOPHILS ABSOLUTE 0.24 10/3/uL (0.0-0.53); HEMATOCRIT 22.5 % (40.0-51.0); HEMOGLOBIN 7.7 g/dL (13.6-17.8); IMMATURE GRANULOCYTES 3.4 %; IMMATURE GRANULOCYTES ABSOLUTE 0.36 10/3/uL (0.0-0.11); LYMPHOCYTES 14.4 %; LYMPHOCYTES ABSOLUTE 1.53 10/3/uL (0.67-4.30); MANUAL DIFF NO %; MEAN CORPUS HGB CONC 34.2 g/dL (32.0-36.0); MEAN CORPUSCULAR HEMOGLOB 30.2 pg (26.0-34.0); MEAN CORPUSCULAR VOLUME 88.2 fL (80-100); MEAN PLATELET VOLUME 8.9 fL (9.2-13.0); MONOCYTES 10.2 %; MONOCYTES ABSOLUTE 1.08 10/3/uL (0.21-1.20); NEUTROPHILS 69.5 %; PLATELET COUNT 114 10/3/uL (150-400); RBC DISTRIBUTION WIDTH 16.2 % (12.0-16.0); RED CELL COUNT 2.55 10/6/uL (4.7-6.1); WHITE BLOOD CELLS 10.6 10/3/uL (4.5-10.5)
[2016-12-16 03:42] LABS: A/G RATIO 1.3 (0.7-1.9); ALBUMIN 3.3 G/DL (3.5-5.0); ALKALINE PHOSPHATASE 90 U/L (45-117); CALCIUM, SERUM 7.8 MG/DL (8.5-10.4); CHLORIDE, SERUM 98 MMOL/L (96-112); CO2 (CARBON DIOXIDE) 26 MMOL/L (24-34); GLOBULIN 2.6 G/DL (2.5-4.1); GLUCOSE, SERUM 197 MG/DL (60-99); POTASSIUM, SERUM 3.2 MMOL/L (3.5-5.3); SGOT(AST) 92 U/L (5-40); SGPT(ALT) 54 U/L (5-65); SODIUM, SERUM 137 MMOL/L (135-148); TOTAL BILIRUBIN 0.9 MG/DL (0-1.2); TOTAL PROTEIN 5.9 G/DL (6.0-8.5)
[2016-12-16 03:50] LABS: BUN (BLOOD UREA NITROGEN) 34 MG/DL (6-23); CREATININE 2.68 MG/DL (0.70-1.30); GFR AFRICAN AMERICAN 26 ML/MIN (>=60); GFR NON AFRICAN AMERICAN 23 ML/MIN (>=60); PHOSPHORUS, SERUM 3.6 MG/DL (2.5-4.5)
[2016-12-17 03:58] LABS: BASOPHILS 0.2 %; BASOPHILS ABSOLUTE 0.02 10/3/uL (0.0-0.16); EOSINOPHILS 2.4 %; EOSINOPHILS ABSOLUTE 0.26 10/3/uL (0.0-0.53); HEMATOCRIT 23.7 % (40.0-51.0); HEMOGLOBIN 7.9 g/dL (13.6-17.8); IMMATURE GRANULOCYTES 2.2 %; IMMATURE GRANULOCYTES ABSOLUTE 0.24 10/3/uL (0.0-0.11); LYMPHOCYTES 10.4 %; LYMPHOCYTES ABSOLUTE 1.11 10/3/uL (0.67-4.30); MEAN CORPUS HGB CONC 33.3 g/dL (32.0-36.0); MEAN CORPUSCULAR HEMOGLOB 29.8 pg (26.0-34.0); MEAN CORPUSCULAR VOLUME 89.4 fL (80-100); MEAN PLATELET VOLUME 8.9 fL (9.2-13.0); MONOCYTES ABSOLUTE 1.07 10/3/uL (0.21-1.20); NEUTROPHILS 74.8 %; NEUTROPHILS ABSOLUTE 7.99 10/3/uL (2.02-8.40); PLATELET COUNT 117 10/3/uL (150-400); RBC DISTRIBUTION WIDTH 16.3 % (12.0-16.0); RED CELL COUNT 2.65 10/6/uL (4.7-6.1); WHITE BLOOD CELLS 10.7 10/3/uL (4.5-10.5)
[2016-12-17 04:02] LABS: MANUAL DIFF NO %
[2016-12-17 04:12] LABS: A/G RATIO 1.1 (0.7-1.9); ALKALINE PHOSPHATASE 84 U/L (45-117); CALCIUM, SERUM 8.2 MG/DL (8.5-10.4); CHLORIDE, SERUM 97 MMOL/L (96-112); CO2 (CARBON DIOXIDE) 27 MMOL/L (24-34); GLOBULIN 2.7 G/DL (2.5-4.1); GLUCOSE, SERUM 158 MG/DL (60-99); PHOSPHORUS, SERUM 3.6 MG/DL (2.5-4.5); POTASSIUM, SERUM 3.4 MMOL/L (3.5-5.3); SGOT(AST) 66 U/L (5-40); SGPT(ALT) 46 U/L (5-65); SODIUM, SERUM 136 MMOL/L (135-148); TOTAL PROTEIN 5.7 G/DL (6.0-8.5)
[2016-12-17 04:22] LABS: BUN (BLOOD UREA NITROGEN) 49 MG/DL (6-23); CREATININE 3.18 MG/DL (0.70-1.30); GFR AFRICAN AMERICAN 21 ML/MIN (>=60); GFR NON AFRICAN AMERICAN 18 ML/MIN (>=60); TOTAL BILIRUBIN 1.4 MG/DL (0-1.2)
[2016-12-18 05:21] LABS: BASOPHILS 0.2 %; BASOPHILS ABSOLUTE 0.02 10/3/uL (0.0-0.16); EOSINOPHILS 2.8 %; EOSINOPHILS ABSOLUTE 0.34 10/3/uL (0.0-0.53); HEMATOCRIT 23.8 % (40.0-51.0); HEMOGLOBIN 7.9 g/dL (13.6-17.8); IMMATURE GRANULOCYTES 1.4 %; IMMATURE GRANULOCYTES ABSOLUTE 0.17 10/3/uL (0.0-0.11); LYMPHOCYTES 9.1 %; LYMPHOCYTES ABSOLUTE 1.09 10/3/uL (0.67-4.30); MEAN CORPUS HGB CONC 33.2 g/dL (32.0-36.0); MEAN CORPUSCULAR HEMOGLOB 29.3 pg (26.0-34.0); MEAN CORPUSCULAR VOLUME 88.1 fL (80-100); MEAN PLATELET VOLUME 8.4 fL (9.2-13.0); MONOCYTES 9.3 %; MONOCYTES ABSOLUTE 1.11 10/3/uL (0.21-1.20); NEUTROPHILS 77.2 %; NEUTROPHILS ABSOLUTE 9.27 10/3/uL (2.02-8.40); PLATELET COUNT 114 10/3/uL (150-400); RBC DISTRIBUTION WIDTH 16.6 % (12.0-16.0)
[2016-12-18 05:23] LABS: MANUAL DIFF NO %
[2016-12-18 05:36] LABS: A/G RATIO 0.9 (0.7-1.9); ALBUMIN 2.8 G/DL (3.5-5.0); ALKALINE PHOSPHATASE 87 U/L (45-117); CALCIUM, SERUM 8.6 MG/DL (8.5-10.4); CHLORIDE, SERUM 99 MMOL/L (96-112); CO2 (CARBON DIOXIDE) 26 MMOL/L (24-34); CREATININE 3.58 MG/DL (0.70-1.30); GFR AFRICAN AMERICAN 18 ML/MIN (>=60); GFR NON AFRICAN AMERICAN 16 ML/MIN (>=60); POTASSIUM, SERUM 3.6 MMOL/L (3.5-5.3); SGOT(AST) 51 U/L (5-40); SGPT(ALT) 41 U/L (5-65); SODIUM, SERUM 136 MMOL/L (135-148); TOTAL PROTEIN 5.8 G/DL (6.0-8.5)
[2016-12-18 05:40] LABS: BUN (BLOOD UREA NITROGEN) 61 MG/DL (6-23); GLUCOSE, SERUM 108 MG/DL (60-99); TOTAL BILIRUBIN 0.8 MG/DL (0-1.2)
[2016-12-20 08:33] LABS: BASOPHILS 0.3 %; BASOPHILS ABSOLUTE 0.04 10/3/uL (0.0-0.16); EOSINOPHILS 2.7 %; EOSINOPHILS ABSOLUTE 0.31 10/3/uL (0.0-0.53); HEMATOCRIT 23.5 % (40.0-51.0); HEMOGLOBIN 7.9 g/dL (13.6-17.8); IMMATURE GRANULOCYTES 0.6 %; IMMATURE GRANULOCYTES ABSOLUTE 0.07 10/3/uL (0.0-0.11); LYMPHOCYTES 12.5 %; LYMPHOCYTES ABSOLUTE 1.46 10/3/uL (0.67-4.30); MEAN CORPUS HGB CONC 33.6 g/dL (32.0-36.0); MEAN CORPUSCULAR HEMOGLOB 29.5 pg (26.0-34.0); MEAN CORPUSCULAR VOLUME 87.7 fL (80-100); MEAN PLATELET VOLUME 8.7 fL (9.2-13.0); MONOCYTES 10.2 %; MONOCYTES ABSOLUTE 1.19 10/3/uL (0.21-1.20); NEUTROPHILS 73.7 %; NEUTROPHILS ABSOLUTE 8.62 10/3/uL (2.02-8.40); PLATELET COUNT 141 10/3/uL (150-400); RBC DISTRIBUTION WIDTH 17.1 % (12.0-16.0); RED CELL COUNT 2.68 10/6/uL (4.7-6.1); WHITE BLOOD CELLS 11.7 10/3/uL (4.5-10.5)
[2016-12-20 08:34] LABS: MANUAL DIFF NO %
[2016-12-20 08:45] LABS: ALBUMIN 2.9 G/DL (3.5-5.0); CALCIUM, SERUM 8.7 MG/DL (8.5-10.4); CHLORIDE, SERUM 104 MMOL/L (96-112); CO2 (CARBON DIOXIDE) 28 MMOL/L (24-34); CREATININE 3.21 MG/DL (0.70-1.30); GFR AFRICAN AMERICAN 21 ML/MIN (>=60); GFR NON AFRICAN AMERICAN 18 ML/MIN (>=60); GLUCOSE, SERUM 101 MG/DL (60-99); POTASSIUM, SERUM 4.2 MMOL/L (3.5-5.3); SODIUM, SERUM 140 MMOL/L (135-148)
[2016-12-20 08:46] LABS: BUN (BLOOD UREA NITROGEN) 50 MG/DL (6-23); PHOSPHORUS, SERUM 2.3 MG/DL (2.5-4.5)
[2016-12-21 05:43] LABS: BASOPHILS 0.4 %; BASOPHILS ABSOLUTE 0.04 10/3/uL (0.0-0.16); EOSINOPHILS 2.5 %; EOSINOPHILS ABSOLUTE 0.27 10/3/uL (0.0-0.53); HEMOGLOBIN 8.7 g/dL (13.6-17.8); IMMATURE GRANULOCYTES 0.6 %; IMMATURE GRANULOCYTES ABSOLUTE 0.06 10/3/uL (0.0-0.11); LYMPHOCYTES 14.4 %; LYMPHOCYTES ABSOLUTE 1.57 10/3/uL (0.67-4.30); MEAN CORPUS HGB CONC 33.6 g/dL (32.0-36.0); MEAN CORPUSCULAR HEMOGLOB 29.9 pg (26.0-34.0); MEAN PLATELET VOLUME 8.7 fL (9.2-13.0); MONOCYTES 7.9 %; MONOCYTES ABSOLUTE 0.86 10/3/uL (0.21-1.20); NEUTROPHILS 74.2 %; NEUTROPHILS ABSOLUTE 8.08 10/3/uL (2.02-8.40); PLATELET COUNT 115 10/3/uL (150-400); RED CELL COUNT 2.91 10/6/uL (4.7-6.1); WHITE BLOOD CELLS 10.9 10/3/uL (4.5-10.5)
[2016-12-21 05:50] LABS: HEMATOCRIT 25.9 % (40.0-51.0); MANUAL DIFF NO %
[2016-12-21 05:56] LABS: ALBUMIN 2.8 G/DL (3.5-5.0); CALCIUM, SERUM 8.6 MG/DL (8.5-10.4); CHLORIDE, SERUM 103 MMOL/L (96-112); CO2 (CARBON DIOXIDE) 25 MMOL/L (24-34); CREATININE 2.86 MG/DL (0.70-1.30); GFR AFRICAN AMERICAN 24 ML/MIN (>=60); GFR NON AFRICAN AMERICAN 21 ML/MIN (>=60); GLUCOSE, SERUM 82 MG/DL (60-99); PHOSPHORUS, SERUM 2.2 MG/DL (2.5-4.5); SODIUM, SERUM 138 MMOL/L (135-148)
[2016-12-21 05:58] LABS: BUN (BLOOD UREA NITROGEN) 45 MG/DL (6-23)
[2016-12-22 08:29] LABS: BASOPHILS 0.2 %; BASOPHILS ABSOLUTE 0.02 10/3/uL (0.0-0.16); EOSINOPHILS 2.9 %; EOSINOPHILS ABSOLUTE 0.34 10/3/uL (0.0-0.53); HEMATOCRIT 25.5 % (40.0-51.0); HEMOGLOBIN 8.6 g/dL (13.6-17.8); IMMATURE GRANULOCYTES 0.6 %; IMMATURE GRANULOCYTES ABSOLUTE 0.07 10/3/uL (0.0-0.11); LYMPHOCYTES 12.3 %; LYMPHOCYTES ABSOLUTE 1.42 10/3/uL (0.67-4.30); MANUAL DIFF NO %; MEAN CORPUS HGB CONC 33.7 g/dL (32.0-36.0); MEAN CORPUSCULAR HEMOGLOB 29.3 pg (26.0-34.0); MEAN CORPUSCULAR VOLUME 86.7 fL (80-100); MEAN PLATELET VOLUME 8.7 fL (9.2-13.0); MONOCYTES 9.2 %; MONOCYTES ABSOLUTE 1.06 10/3/uL (0.21-1.20); NEUTROPHILS 74.8 %; NEUTROPHILS ABSOLUTE 8.67 10/3/uL (2.02-8.40); PLATELET COUNT 161 10/3/uL (150-400); RBC DISTRIBUTION WIDTH 16.7 % (12.0-16.0); RED CELL COUNT 2.94 10/6/uL (4.7-6.1); WHITE BLOOD CELLS 11.6 10/3/uL (4.5-10.5)
[2016-12-22 08:40] LABS: ALBUMIN 2.9 G/DL (3.5-5.0); BUN (BLOOD UREA NITROGEN) 60 MG/DL (6-23); CALCIUM, SERUM 9.1 MG/DL (8.5-10.4); CHLORIDE, SERUM 102 MMOL/L (96-112); CO2 (CARBON DIOXIDE) 26 MMOL/L (24-34); CREATININE 3.15 MG/DL (0.70-1.30); GFR AFRICAN AMERICAN 21 ML/MIN (>=60); GFR NON AFRICAN AMERICAN 18 ML/MIN (>=60); GLUCOSE, SERUM 92 MG/DL (60-99); PHOSPHORUS, SERUM 3.2 MG/DL (2.5-4.5); POTASSIUM, SERUM 4.2 MMOL/L (3.5-5.3); SODIUM, SERUM 137 MMOL/L (135-148)
== END 2016-12-22 17:14 | DRG 231 ==
LOC: ER 23:59 → 5NO 11-29 02:20 → SSU2 12-04 16:29 → 5NO 12-05 18:07 → SDC/OF 12-08 13:32 → CVICU 12-08 17:16 → 5NO 12-18 13:47
PROVIDERS: Emergency Medicine; Internal Medicine Nephrology; Nurse Practitioner Family; Thoracic Surgery (Cardiothoracic Vascular Surgery)
PROC: 5A1D60Z (ICD-10-PCS; 2016-11-29)
PROC: 4A023N7 Measurement of Cardiac Sampling and Pressure, Left Heart, Percutaneous Approach (ICD-10-PCS; principal; 2016-12-04)
PROC: 0W3C0ZZ Control Bleeding in Mediastinum, Open Approach (ICD-10-PCS; 2016-12-04)
PROC: B2111ZZ Fluoroscopy of Multiple Coronary Arteries using Low Osmolar Contrast (ICD-10-PCS; 2016-12-04)
PROC: B2151ZZ Fluoroscopy of Left Heart using Low Osmolar Contrast (ICD-10-PCS; 2016-12-04)
PROC: 06BP0ZZ Excision of Right Saphenous Vein, Open Approach (ICD-10-PCS; 2016-12-08)
PROC: 5A1221Z Performance of Cardiac Output, Continuous (ICD-10-PCS; 2016-12-08)
PROC: B246ZZ4 Ultrasonography of Right and Left Heart, Transesophageal (ICD-10-PCS; 2016-12-08)
PROC: 30233N1 Transfusion of Nonautologous Red Blood Cells into Peripheral Vein, Percutaneous Approach (ICD-10-PCS; 2016-12-08)
PROC: 30233R1 Transfusion of Nonautologous Platelets into Peripheral Vein, Percutaneous Approach (ICD-10-PCS; 2016-12-08)
PROC: 30233K1 Transfusion of Nonautologous Frozen Plasma into Peripheral Vein, Percutaneous Approach (ICD-10-PCS; 2016-12-08)
PROC: 021 Heart and Great Vessels, Bypass (ICD-10-PCS; 2016-12-08 12:00)
PROC: 02703ZZ Dilation of Coronary Artery, One Artery, Percutaneous Approach (ICD-10-PCS; 2016-12-08 12:00)
PROC: 06BQ4ZZ Excision of Left Saphenous Vein, Percutaneous Endoscopic Approach (ICD-10-PCS; 2016-12-08 12:00)
DX: I21.4 Non-ST elevation (NSTEMI) myocardial infarction (principal); N18.6 End stage renal disease; J95.821 Acute postprocedural respiratory failure; I63.40 Cerebral infarction due to embolism of unspecified cerebral artery; I50.21 Acute systolic (congestive) heart failure; I47.2 Ventricular tachycardia; I13.2 Hypertensive heart and chronic kidney disease with heart failure and with stage 5 chronic kidney disease, or end stage renal disease; I97.611 Postprocedural hemorrhage of a circulatory system organ or structure following cardiac bypass; D62 Acute posthemorrhagic anemia; I97.820 Postprocedural cerebrovascular infarction following cardiac surgery; G81.91 Hemiplegia, unspecified affecting right dominant side; E11.22 Type 2 diabetes mellitus with diabetic chronic kidney disease; I25.10 Atherosclerotic heart disease of native coronary artery without angina pectoris; E78.5 Hyperlipidemia, unspecified; C61 Malignant neoplasm of prostate; E78.2 Mixed hyperlipidemia; Z86.73 Personal history of transient ischemic attack (TIA), and cerebral infarction without residual deficits; Z95.1 Presence of aortocoronary bypass graft; Z99.2 Dependence on renal dialysis; Z92.3 Personal history of irradiation; Z86.718 Personal history of other venous thrombosis and embolism; Z98.890 Other specified postprocedural states; Z79.02 Long term (current) use of antithrombotics/antiplatelets; Z79.899 Other long term (current) drug therapy; Z79.4 Long term (current) use of insulin; Z82.49 Family history of ischemic heart disease and other diseases of the circulatory system; Z83.3 Family history of diabetes mellitus; Z80.8 Family history of malignant neoplasm of other organs or systems
CPT/HCPCS: 31720; 36415; 36600; 70450; 70551; 71010; 71020; 71260; 77002; 80048; 80053; 80061; 80069; 80202; 81001; 82330; 82533; 82803; 82805; 82947; 82962; 83036; 83540; 83550; 83735; 84100; 84132; 84145; 84295; 84460; 84484; 85014; 85018; 85025; 85049; 85347; 85384; 85390; 85576; 85610; 85730; 86850; 86900; 86901; 86920; 86965; 87641; 92523-GN; 92610-GN; 93005; 93312; 93320; 93325; 93459; 93880; 93971; 94002; 94640; 94660; 94770; 97110-GO; 97110-GP; 97163-GP; 97166-GO; 97530-GP; 99291; A9270-GY; C1713; C1725; C1750; C1751; C1760; C1769; C1887; C1894; C8929; G0257; G0365; J0360; J0610; J0690; J0692; J0885; J1644; J2150; J2250; J2370; J2405; J2440; J2597; J2720; J2765; J2795; J2930; J3010; J3370; J3475; J3480; P9012; P9016; P9035; P9045; P9047; P9059; Q9957; Q9967